=== PATIENT | male | born 1955 | race Two or more races ===

== ENCOUNTER → 2017-07-28 | Outpatient (REF) | payer MEDICAID ==
[~2017-07-28] MED LIST: ASPI1TAB PO; DICL500C PO; DORZ2SOL5 OD; Docusate Sod/Senna PO; FLAG500T PO; IBUP60TA PO; LANTINJ4 SC; LATA5OPD OD; LEVA1TAB2 PO; LISI10TA4 PO; METF500T13 PO; MULTLIQ PO; PERCOCET PO; PRIN10TA PO; VITA100072 PO
[2017-07-28 12:01] LABS: BASO # 0.1 10^3/uL (0.0-0.2); BASO % 1.1 % (0.0-1.0); EOS # 0.4 10^3/uL (0.0-0.50); EOS % 5.1 % (0.0-3.0); IMMATURE GRANULOCYTE % 0.4 % (0-0); LYMPH # 1.9 10^3/uL (1.5-4.5); LYMPH % 24.5 % (24.0-44.0); MEAN CORPUSCULAR HGB CONC 33.5 g/dl (32.0-36.5); MEAN CORPUSCULAR VOLUME 92.6 fl (80.0-96.0); MONO # 0.7 10^3/uL (0.0-0.8); MONO % 8.6 % (0.0-5.0); NEUTROPHILS # 4.6 10^3/uL (1.8-7.7); NEUTROPHILS % 60.3 % (36.0-66.0); PLATELET COUNT, AUTOMATED 294 10^3/uL (150-450); RED CELL DISTRIBUTION WIDTH 13.6 % (11.5-14.5); WHITE BLOOD COUNT 7.6 10^3/uL (4.0-10.0)
[2017-07-28 12:36] LABS: VITAMIN B12 LEVEL 395 PG/ML
[2017-07-28 12:38] LABS: FOLATE 15.2 NG/ML
[2017-07-28 12:54] LABS: ALBUMIN 3.8 GM/DL (3.2-5.2); ALBUMIN/GLOBULIN RATIO 1.19 (1.00-1.93); ALKALINE PHOSPHATASE 76 U/L (45-117); ALT/SGPT 21 U/L (12-78); ANION GAP 8 MEQ/L (8-16); AST/SGOT 8 U/L (7-37); BILIRUBIN,TOTAL 0.3 MG/DL (0.2-1.0); BLOOD UREA NITROGEN 24 MG/DL (7-18); CALCIUM LEVEL 9.1 MG/DL (8.8-10.2); CARBON DIOXIDE LEVEL 27 MEQ/L (21-32); CHLORIDE LEVEL 104 MEQ/L (98-107); CHOLESTEROL LEVEL 269 MG/DL (<200); CREATININE FOR GFR 1.07 MG/DL (0.70-1.30); FERRITIN 277 NG/ML (26-388); FREE T4 1.14 NG/DL (0.76-1.46); GLOMERULAR FILTRATION RATE > 60.0 (>49); GLUCOSE, FASTING 224 MG/DL (80-110); PERCENT SATURATION 25.6 % (19.7-50.0); POTASSIUM SERUM 4.9 MEQ/L (3.5-5.1); SODIUM LEVEL 139 MEQ/L (136-145); TOTAL IRON BINDING CAPACITY 313 UG/DL (250-450); TRIGLYCERIDES LEVEL 158 MG/DL (<150)
== END ==
LOC: M SFHCPLAZ 08:10
PROVIDERS: ATTEND Physician Assistant
DX: E78.5 Hyperlipidemia, unspecified (principal); R20.9 Unspecified disturbances of skin sensation; E11.9 Type 2 diabetes mellitus without complications; Z12.5 Encounter for screening for malignant neoplasm of prostate; F10.20 Alcohol dependence, uncomplicated
CPT/HCPCS: 36415; 80053; 80061; 82043; 82607; 82728; 82746; 83036; 83550; 84439; 84443; 85025; G0103

== ENCOUNTER → 2017-07-31 | Outpatient (CLI) | payer MEDICAID ==
[~2017-07-31] MED LIST changes: +PROHANCE 279.3MG/ML 15ML VIAL (A9576) As Ordered ONE; +PROHANCE 279.3MG/ML 5ML VIAL (A9576) As Ordered ONE
--- NOTE | 2017-07-31 14:28 | REP ---
MRI brain without and with IV gadolinium: History: Disturbance of skin sensation. Weakness and tingling left hand. - Facial numbness on the left side. Gadolinium enhancement dose: 22 ml of intravenous ProHance. No comparison brain imaging. Technique: Axial coronal and sagittal imaging planes are utilized. T1 and T2-weighted sequences include spin-echo, fast spin echo, FLAIR, and diffusion weighted sequences. MRI findings: No bony calvarial lesion is seen. Craniocervical junction and upper cervical cord is normal in appearance. There is no MR evidence of significant paranasal sinus disease. No intraorbital abnormality is seen. Diffusion weighted scans show no evidence to suggest acute ischemia. There is no evidence of infarct, mass, extra-axial fluid collection, hemorrhage or midline shift. Postcontrast study shows enhancement of normal vasculature. No abnormal gadolinium enhancement is appreciated. Impression: No acute intracranial lesion. Signed by Faustino Cornejo MD 07/31/2017 02:19 P
== END ==
LOC: M RAD 12:09
PROVIDERS: ATTEND Physician Assistant
DX: R20.9 Unspecified disturbances of skin sensation (principal)
CPT/HCPCS: 70553; A9576

== ENCOUNTER → 2017-09-15 | Outpatient (CLI) | payer MEDICAID ==
[~2017-09-15] MED LIST changes: -ASPI1TAB PO; -DICL500C PO; -DORZ2SOL5 OD; -Docusate Sod/Senna PO; -FLAG500T PO; -IBUP60TA PO; +ISOVUE-370 76% 100ML VIAL (Q9967) As Ordered; -LANTINJ4 SC; -LATA5OPD OD; -LEVA1TAB2 PO; -LISI10TA4 PO; -METF500T13 PO; -MULTLIQ PO; -PERCOCET PO; -PRIN10TA PO; -PROHANCE 279.3MG/ML 15ML VIAL (A9576) As Ordered ONE; -PROHANCE 279.3MG/ML 5ML VIAL (A9576) As Ordered ONE; -VITA100072 PO
== END ==
LOC: M RAD 13:11
DX: K11.8 Other diseases of salivary glands (principal)
CPT/HCPCS: Q9967

== ENCOUNTER → 2017-09-20 | Outpatient (REF) | payer OTHER | LOC: M LAB REF 16:08 | DX: D37.030 Neoplasm of uncertain behavior of the parotid salivary glands (principal) ==

== ENCOUNTER → 2017-11-02 | Outpatient (CLI) | payer OTHER | LOC: M RAD 07:12 | DX: I65.23 Occlusion and stenosis of bilateral carotid arteries (principal) | CPT/HCPCS: 93880 ==

== ENCOUNTER → 2017-12-27 | Outpatient (REF) | payer OTHER | LOC: M LAB REF 17:12 | DX: L03.032 Cellulitis of left toe (principal) ==

== ENCOUNTER → 2018-05-07 | Outpatient (REF) | payer OTHER, MEDICAID ==
[2018-05-07 17:44] LABS: C REACTIVE PROTEIN QUANTITATIV < 0.30 MG/DL (0.00-0.30); RHEUMATOID FACTOR QUANT < 10.0 IU/ML (<15.0)
[2018-05-07 17:48] LABS: BASO # 0.1 10^3/uL (0.0-0.2); BASO % 0.7 % (0.0-1.0); EOS # 0.3 10^3/uL (0.0-0.50); EOS % 3.6 % (0.0-3.0); HEMATOCRIT 38.9 % (42.0-52.0); HEMOGLOBIN 13.1 g/dl (13.5-17.5); IMMATURE GRANULOCYTE % 0.2 % (0-3.0); LYMPH # 2.1 10^3/uL (1.5-4.5); LYMPH % 25.6 % (24.0-44.0); MEAN CORPUSCULAR HEMOGLOBIN 31.4 pg (27.0-33.0); MEAN CORPUSCULAR HGB CONC 33.7 g/dl (32.0-36.5); MEAN CORPUSCULAR VOLUME 93.3 fl (80.0-96.0); MONO # 0.7 10^3/uL (0.0-0.8); MONO % 8.1 % (0.0-5.0); NEUTROPHILS # 5.1 10^3/uL (1.8-7.7); NEUTROPHILS % 61.8 % (36.0-66.0); PLATELET COUNT, AUTOMATED 266 10^3/uL (150-450); RED BLOOD COUNT 4.17 10^6/uL (4.30-6.10); RED CELL DISTRIBUTION WIDTH 13.9 % (11.5-14.5); WHITE BLOOD COUNT 8.3 10^3/uL (4.0-10.0)
[2018-05-07 17:54] LABS: ESTIMATED AVERAGE GLUCOSE 160 MG/DL (60-110); HEMOGLOBIN A1c 7.2 %
[2018-05-07 17:59] LABS: TOTAL 25(OH) VITAMIN D 50.1 NG/ML (30.0-100.0)
[2018-05-07 18:19] LABS: ALBUMIN 3.8 GM/DL (3.2-5.2); ALBUMIN/GLOBULIN RATIO 1.27 (1.00-1.93); ALKALINE PHOSPHATASE 67 U/L (45-117); ALT/SGPT 30 U/L (12-78); ANION GAP 8 MEQ/L (8-16); AST/SGOT 20 U/L (7-37); BILIRUBIN,TOTAL 0.5 MG/DL (0.2-1.0); BLOOD UREA NITROGEN 17 MG/DL (7-18); CALCIUM LEVEL 9.4 MG/DL (8.8-10.2); CARBON DIOXIDE LEVEL 29 MEQ/L (21-32); CHLORIDE LEVEL 105 MEQ/L (98-107); CHOLESTEROL LEVEL 209 MG/DL (<200); CREATININE FOR GFR 0.94 MG/DL (0.70-1.30); GLOMERULAR FILTRATION RATE > 60.0 (>49); GLUCOSE, FASTING 108 MG/DL (70-100); HDL CHOLESTEROL 54 MG/DL (>40); LDL CHOLESTEROL 125 MG/DL (<100); NON-HDL-C 155 MG/DL; POTASSIUM SERUM 4.3 MEQ/L (3.5-5.1); SODIUM LEVEL 142 MEQ/L (136-145); TOTAL PROTEIN 6.8 GM/DL (6.4-8.2); TRIGLYCERIDES LEVEL 152 MG/DL (<150)
[2018-05-07 18:59] LABS: ERYTHROCYTE SEDIMENTATION RATE 21 mm/hr (0-20)
[2018-05-10 00:07] LABS: CYCLIC CITRULLINATED PEPTIDE 6 units (0-19)
[2018-05-10 00:07] LABS: ANTINUCLEAR ANTIBODIES DIRECT Negative (Negative); Lyme Disease IgG/IgM Antibodie <0.91 ISR (0.00-0.90); Lyme Disease IgM Ab Quantitati <0.80 index (0.00-0.79)
== END ==
LOC: M SFHCCAPE 09:04
DX: E11.8 Type 2 diabetes mellitus with unspecified complications (principal); E78.2 Mixed hyperlipidemia

== ENCOUNTER → 2018-07-31 | Outpatient (CLI) | payer OTHER | LOC: M RAD 06:38 | DX: I65.23 Occlusion and stenosis of bilateral carotid arteries (principal) | CPT/HCPCS: 93880 ==

== ENCOUNTER → 2019-01-02 | Outpatient (REF) | payer MEDICAID, OTHER ==
[~2019-01-02] MED LIST changes: +ASPI81TA26 PO; +DICL500C PO; +DORZ2SOL5 OD; +Docusate Sod/Senna PO; +FLAG500T PO; +IBUP600T42 PO; -ISOVUE-370 76% 100ML VIAL (Q9967) As Ordered; +LANTINJ4 SC; +LATA0.0013 OD; +LEVA1TAB2 PO; +LISI10TA4 PO; +METF500T13 PO; +MULTLIQ PO; +PERCOCET PO; +PRIN10TA PO; +VITA100018 PO
[2019-01-02 16:41] LABS: BASO # 0.1 10^3/uL (0.0-0.2); BASO % 1.2 % (0.0-1.0); EOS # 0.3 10^3/uL (0.0-0.50); EOS % 4.1 % (0.0-3.0); LYMPH % 26.1 % (24.0-44.0); MEAN CORPUSCULAR HEMOGLOBIN 32.4 pg (27.0-33.0); MEAN CORPUSCULAR HGB CONC 33.3 g/dl (32.0-36.5); MEAN CORPUSCULAR VOLUME 97.2 fl (80.0-96.0); MONO # 0.7 10^3/uL (0.0-0.8); MONO % 9.2 % (0.0-5.0); NEUTROPHILS # 4.5 10^3/uL (1.8-7.7); NEUTROPHILS % 59.1 % (36.0-66.0); PLATELET COUNT, AUTOMATED 268 10^3/uL (150-450); RED BLOOD COUNT 4.32 10^6/uL (4.30-6.10); WHITE BLOOD COUNT 7.6 10^3/uL (4.0-10.0)
[2019-01-02 17:00] LABS: ALBUMIN 3.6 GM/DL (3.2-5.2); ALT/SGPT 23 U/L (12-78); BILIRUBIN,TOTAL 0.3 MG/DL (0.2-1.0); BLOOD UREA NITROGEN 34 MG/DL (7-18); CALCIUM LEVEL 8.9 MG/DL (8.8-10.2); CARBON DIOXIDE LEVEL 31 MEQ/L (21-32); CHLORIDE LEVEL 104 MEQ/L (98-107); CHOLESTEROL LEVEL 207 MG/DL (<200); CREATININE FOR GFR 1.21 MG/DL (0.70-1.30); GLOMERULAR FILTRATION RATE > 60.0 (>49); GLUCOSE, FASTING 184 MG/DL (70-100); HDL CHOLESTEROL 52 MG/DL (>40); LDL CHOLESTEROL 131 MG/DL (<100); NON-HDL-C 155 MG/DL; POTASSIUM SERUM 4.9 MEQ/L (3.5-5.1); SODIUM LEVEL 139 MEQ/L (136-145); TOTAL PROTEIN 6.9 GM/DL (6.4-8.2); TRIGLYCERIDES LEVEL 122 MG/DL (<150)
[2019-01-02 17:19] LABS: MAU/CREAT RATIO 88.4 MCG/MG (0.0-30.0)
[2019-01-02 17:32] LABS: HEMOGLOBIN A1c 8.2 %
== END ==
LOC: M SFHCCAPE 08:05
PROVIDERS: ATTEND Physician Assistant
DX: I10 Essential (primary) hypertension (principal); E11.8 Type 2 diabetes mellitus with unspecified complications; E78.2 Mixed hyperlipidemia

== ENCOUNTER → 2019-03-14 | Outpatient (CLI) | payer OTHER ==
--- NOTE | 2019-03-18 14:21 | REP ---
Clinical: Hypertension. Technique: Atkins scale and color Doppler evaluation of the kidneys and renal vasculature using curved array transducer. Findings: The kidneys are essentially normal in contour size and echogenicity and reniform shape without hydronephrosis, nephrolithiasis, cystic or renal mass lesion. Right kidney measures 12.2 x 5.8 x 5.4 cm . Left kidney measures 12.1 x 5.4 x 6.7 cm . Bladder is incompletely distended and grossly normal by current evaluation. Color Doppler evaluation of the renal vasculature demonstrates normal arterial wave patterns, velocities, renal aortic ratios, resistive indices and the acceleration time. No sonographic evidence for renal arterial stenosis noted. Renal vein is patent. Right Kidney: Peak arterial velocity: 115 cm/sec . Renal aortic ratio: 1.2 . Resistive indices: 0.75 - 0.77 . Acceleration times: 0.03 - 0.04 . Left kidney: Peak arterial velocity: 161 cm/sec . Renal aortic ratio: 1.7 . Resistive indices: 0.72 - 0.78 . Acceleration times: 0.02 - 0.03 . Impression: 1. Normal appearance of the bilateral kidneys. 2. No sonographic evidence to suggest renal arterial stenosis. Electronically Signed by Mervin Braden MD 03/18/2019 02:12 P
== END ==
LOC: M RAD 06:45
PROVIDERS: ATTEND Internal Medicine Cardiovascular Disease
DX: I10 Essential (primary) hypertension (principal)

== ENCOUNTER → 2019-03-27 | Outpatient (REF) | payer OTHER | LOC: M LAB REF 15:49 | PROVIDERS: ATTEND Podiatrist | DX: L97.522 Non-pressure chronic ulcer of other part of left foot with fat layer exposed (principal) ==

== ENCOUNTER 2019-05-07 11:41 | Day surgery (SDC) | payer OTHER ==
[~2019-05-07] VITALS: Ht 182.9 cm; Wt 113.4 kg
[~2019-05-07 11:41] MED LIST changes: +BASA100I SC; +BIMA01SOL OS; +BRIM1OPD OU; +CHOL100029 PO; +CLOP75TA2 PO; +FISH1000 PO; +LISI40TA PO; +MULTCAP PO; +NETA2.5D2 OD; +ODOR100T3 PO; +PILO1OPD OD; +VITA500T PO
[2019-05-07] MEDS ORDERED: CETACAINE SPRAY 5GM As Ordered ONE (15:10)
[2019-05-07] MEDS ORDERED: LIDOCAINE 2% INJ 100 MG/5 ML SDV (FOR ANES.) As Ordered ONE (15:18)
[2019-05-07] MEDS ORDERED: PROPOFOL 200 MG/20 ML VIAL As Ordered ONE (15:18)
[2019-05-07] MEDS ORDERED: LABETALOL HCL 100 MG/20 ML VIAL As Ordered ONE (15:58)
--- NOTE | 2019-05-07 16:16 | T-ECHO ---
DATE OF PROCEDURE: 05/07/2019 PREPROCEDURE DIAGNOSIS: Aortic valve vegetation (infective endocarditis). POSTPROCEDURE DIAGNOSIS: Aortic valve sclerosis. No vegetation. FINDINGS: Aortic valve sclerosis (moderate). No vegetation. PROCEDURE PERFORMED: Transesophageal echocardiogram. PROCEDURE PERFORMED BY: John Castrejon MD SLIP LASTER: None. SEDATION: IV sedation with propofol per MET[employer] PATTERN[employer]KER. Cetacaine spray to back of the pharynx. COMPLICATIONS: None. PROCEDURE DESCRIPTION: The patient received Cetacaine spray to the back of the pharynx. After receiving adequate IV sedation (Propofol), given by the METAL PATTERNMAKER esophageal intubation was accomplished by Dr. Castrejon using a Dina transesophageal echocardiogram probe. Rhythm appeared to sinus. This was a technically difficult transesophageal echocardiogram. The overall impression was that the left and right ventricle systolic function appeared to be globally normal. The aortic valve was moderately difficult to visualize but showed a three-cuspid aortic valve with moderate focal thickening and focal calcific deposits. No aortic regurgitation. The aortic valve did not appear to be significantly stenotic by visual assessment. No vegetations were seen on the aortic or mitral valves. Mitral valve was technically difficult as well in visualization but appeared to be unremarkable. Tricuspid and pulmonic valves were not adequately visualized. No pericardial effusion. CONCLUSIONS: 1. 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 No aortic regurgitation. Aortic valve did not appear to be stenotic by visual assessment. 2. No vegetation seen on the aortic or mitral valves. 3. Impression of normal left and right ventricle systolic function but technically difficult. 4. Technically difficult transesophageal echocardiogram.
[2019-05-07] MEDS ORDERED: ONDANSETRON 4MG/2ML VIAL (J2405) IV PRN (16:30)
[2019-05-07] MEDS ORDERED: LR 1,000 ML IV SCH (16:30)
[2019-05-07] MEDS ORDERED: PERCOCET 5MG/325MG TAB PO PRN (16:30)
[2019-05-07] MEDS ORDERED: fentaNYL 100 MCG/2 ML INJECTION (J3010) IV PRN (16:30)
[2019-05-07 20:06] VITALS: BP 167/79
== END 2019-05-07 20:15 | disposition home or self-care (01) ==
LOC: M SDC 11:41
PROVIDERS: ATTEND Internal Medicine Cardiovascular Disease
DX: I35.0 Nonrheumatic aortic (valve) stenosis (principal); I10 Essential (primary) hypertension; E11.9 Type 2 diabetes mellitus without complications; E78.5 Hyperlipidemia, unspecified; Z79.02 Long term (current) use of antithrombotics/antiplatelets; Z79.84 Long term (current) use of oral hypoglycemic drugs; Z79.4 Long term (current) use of insulin; L40.9 Psoriasis, unspecified

== ENCOUNTER → 2019-05-20 | Outpatient (CLI) | payer OTHER ==
--- NOTE | 2019-05-20 11:00 | REP ---
REASON: Low back pain. History of arthritis. There is mild whiskering involving both sacral and iliac side of each SI joint. The SI joints are non-fused. Small marginal osteophytes are seen arising from the inferior aspect of each SI joint. Although not performed as a hip exam, there are bilateral hip degenerative changes as well. These changes are mild to moderate. IMPRESSION: Chronic changes as described above. Electronically Signed by Remy Chandler DO 05/20/2019 02:37 P
--- NOTE | 2019-05-20 11:45 | REP ---
REASON FOR EXAM: Arthritis. COMPARISON EXAM: None. RIGHT HAND: There is an old healed fracture involving the 5th metacarpal. The joint spaces are symmetric and relatively well maintained. There is no evidence of acute fracture or destructive osseous lesion. Two tiny radiodensities are seen in the soft tissues just proximal to the proximal interphalangeal joint of the second digit and lateral to it. There is no evidence of periarticular osteopenia, marginal erosions, or marginal osteophytes. IMPRESSION: 1. Two tiny radiodensities in the soft tissues of the second digit consistent with foreign bodies, correlate clinically. 2. Other findings as described above. LEFT HAND, FOUR VIEWS: There is evidence of mild asymmetric interdigital joint space narrowing involving the PIP and DIP joints of the third digit. Seen in the base of the middle phalanx of the third digit there is a metallic radiodensity consistent with an anchor device from a previous operative procedure. There is periosteal thickening seen involving the volar aspect of the middle phalanx of the third digit and evidence of a small exostosis involving the base of the middle phalanx of the third digit dorsal aspect. These are likely secondary to chronic changes. There are no definite marginal erosions and there are no prominent marginal osteophytes. IMPRESSION: Chronic changes as described above. Electronically Signed by Remy Chandler DO 05/20/2019 02:37 P
== END ==
LOC: M RAD 06:13
PROVIDERS: ATTEND Internal Medicine Rheumatology
DX: M25.78 Osteophyte, vertebrae (principal)

== ENCOUNTER → 2019-07-22 | Outpatient (CLI) | payer OTHER ==
--- NOTE | 2019-07-22 07:33 | REP ---
Clinical: Atherosclerotic disease. Stenosis. Comparison: 07/31/2018 . Technique: Atkins scale and color Doppler evaluation using linear high frequency transducer Findings: Two-dimensional atkins scale and color images demonstrate mixed atheromatous plaquing of the carotid bulbs and proximal internal/external carotid arteries bilaterally with elements of spectral broadening to the right internal carotid artery and left internal carotid artery. Normal flow direction is appreciated in the bilateral vertebral arteries. RIGHT (cm/s) LEFT (cm/s) ICA peak systolic velocity 186.4 132.3 ICA diastolic velocity 68.7 44.4 ECA peak systolic velocity 116.2 116.2 CCA peak systolic velocity 97.8 93.7 ICA/CCA ratio 1.91 1.41 Impression: No significant change from prior examination. Based on set standards narrowing falls within the 50-69% range. Electronically Signed by Mervin Braden MD 07/22/2019 07:24 A
== END ==
LOC: M RAD 06:09
PROVIDERS: ATTEND Physician Assistant
DX: I65.23 Occlusion and stenosis of bilateral carotid arteries (principal)

== ENCOUNTER → 2020-10-29 | Outpatient (REF) | payer MEDICARE ==
[~2020-10-29] MED LIST changes: +LISI10TA22 PO; -LISI10TA4 PO; -LISI40TA PO; +LISI40TA4 PO; +VITA-243 PO; -VITA500T PO
[2020-10-29 11:20] LABS: BASO # 0.1 10^3/uL (0.0-0.2); BASO % 1.3 % (0.0-1.0); EOS # 0.4 10^3/uL (0.0-0.5); EOS % 4.7 % (0.0-3.0); HEMATOCRIT 38.6 % (42.0-52.0); HEMOGLOBIN 12.8 g/dl (13.5-17.5); LYMPH # 2.3 10^3/uL (1.5-5.0); LYMPH % 26.1 % (24.0-44.0); MEAN CORPUSCULAR HEMOGLOBIN 32.4 pg (27.0-33.0); MEAN CORPUSCULAR HGB CONC 33.2 g/dl (32.0-36.5); MEAN CORPUSCULAR VOLUME 97.7 fl (80.0-96.0); MONO # 0.8 10^3/uL (0.0-0.8); MONO % 8.6 % (2.0-8.0); NEUTROPHILS # 5.3 10^3/uL (1.5-8.5); PLATELET COUNT, AUTOMATED 279 10^3/uL (150-450); RED BLOOD COUNT 3.95 10^6/uL (4.30-6.10)
[2020-10-29 12:00] LABS: ALBUMIN 3.8 GM/DL (3.2-5.2); ALT/SGPT 21 U/L (12-78); BILIRUBIN,TOTAL 0.4 MG/DL (0.2-1.0); BLOOD UREA NITROGEN 31 MG/DL (7-18); CALCIUM LEVEL 9.2 MG/DL (8.8-10.2); CARBON DIOXIDE LEVEL 26 MEQ/L (21-32); CHLORIDE LEVEL 107 MEQ/L (98-107); CHOLESTEROL LEVEL 202 MG/DL (<200); CHOLESTEROL RISK RATIO 2.805 (<5); GLOMERULAR FILTRATION RATE 59.2 (>49); GLUCOSE, FASTING 128 MG/DL (70-100); HDL CHOLESTEROL 72 MG/DL (>40); LDL CHOLESTEROL 107 MG/DL (<100); NON-HDL-C 130 MG/DL; POTASSIUM SERUM 4.6 MEQ/L (3.5-5.1); SODIUM LEVEL 139 MEQ/L (136-145); TOTAL PROTEIN 6.6 GM/DL (6.4-8.2); TRIGLYCERIDES LEVEL 116 MG/DL (<150)
[2020-10-29 12:06] LABS: MALB URINE SIEMENS 58.6 MG/L
[2020-10-29 12:31] LABS: TOTAL 25(OH) VITAMIN D 57.7 NG/ML (30.0-100.0)
[2020-10-29 13:57] LABS: FERRITIN 264 NG/ML (26-388); IRON (FE) 101 UG/DL (65-175); PERCENT SATURATION 32.4 % (19.7-50.0); TOTAL IRON BINDING CAPACITY 312 UG/DL (250-450)
[2020-10-29 14:03] LABS: VITAMIN B12 LEVEL 765 PG/ML
[2020-10-29 14:04] LABS: FOLATE > 24.0 NG/ML
== END ==
LOC: M SFHCCLAY 08:06
PROVIDERS: ATTEND Physician Assistant
DX: D64.9 Anemia, unspecified (principal); I10 Essential (primary) hypertension; E11.8 Type 2 diabetes mellitus with unspecified complications; Z79.4 Long term (current) use of insulin; Z12.5 Encounter for screening for malignant neoplasm of prostate
CPT/HCPCS: 80053; 80061; 82043; 82306; 82607; 82728; 82746; 83036; 83550; 84443; 85025; G0103

== ENCOUNTER 2020-11-25 22:00 | Emergency (ER) | payer MEDICARE ==
[2020-11-25 23:24] LABS: BASO # 0.1 10^3/uL (0.0-0.2); BASO % 0.9 % (0.0-1.0); EOS # 0.3 10^3/uL (0.0-0.5); EOS % 3.3 % (0.0-3.0); HEMATOCRIT 40.1 % (42.0-52.0); HEMOGLOBIN 13.4 g/dl (13.5-17.5); LYMPH # 1.4 10^3/uL (1.5-5.0); LYMPH % 17.7 % (24.0-44.0); MEAN CORPUSCULAR HEMOGLOBIN 33.1 pg (27.0-33.0); MEAN CORPUSCULAR HGB CONC 33.4 g/dl (32.0-36.5); MONO # 0.5 10^3/uL (0.0-0.8); MONO % 5.9 % (2.0-8.0); NEUTROPHILS # 5.7 10^3/uL (1.5-8.5); NEUTROPHILS % 71.9 % (36.0-66.0); PLATELET COUNT, AUTOMATED 276 10^3/uL (150-450); RED BLOOD COUNT 4.05 10^6/uL (4.30-6.10)
[2020-11-25 23:51] LABS: BLOOD UREA NITROGEN 15 MG/DL (7-18); CALCIUM LEVEL 8.8 MG/DL (8.8-10.2); CARBON DIOXIDE LEVEL 25 MEQ/L (21-32); CHLORIDE LEVEL 106 MEQ/L (98-107); CREATININE FOR GFR 1.19 MG/DL (0.70-1.30); ETHYL ALCOHOL (ETHANOL) 0.231 % (0.000-0.010); GLOMERULAR FILTRATION RATE > 60.0 (>49); GLUCOSE, FASTING 130 MG/DL (70-100); POTASSIUM SERUM 4.4 MEQ/L (3.5-5.1); SODIUM LEVEL 139 MEQ/L (136-145)
[2020-11-26 01:53] VITALS: BP 158/92
== END 2020-11-26 01:55 | disposition home or self-care (01) ==
LOC: M ED 22:00
DX: F10.120 Alcohol abuse with intoxication, uncomplicated (principal); I11.9 Hypertensive heart disease without heart failure; E11.9 Type 2 diabetes mellitus without complications; E78.5 Hyperlipidemia, unspecified; F17.200 Nicotine dependence, unspecified, uncomplicated; Z79.4 Long term (current) use of insulin; Z79.82 Long term (current) use of aspirin; Z79.899 Other long term (current) drug therapy

== ENCOUNTER → 2021-03-16 | Outpatient (REF) | payer MEDICARE, MEDICAID | LOC: M LAB REF 18:40 | PROVIDERS: ATTEND Podiatrist | DX: L03.129 Acute lymphangitis of unspecified part of limb (principal); M79.671 Pain in right foot ==

== ENCOUNTER → 2021-08-24 | Outpatient (REF) | payer MEDICARE, MEDICAID ==
[2021-08-24 16:13] LABS: BASO # 0.1 10^3/uL (0.0-0.2); EOS # 0.4 10^3/uL (0.0-0.5); EOS % 4.4 % (0.0-3.0); HEMATOCRIT 38.3 % (42.0-52.0); HEMOGLOBIN 12.4 g/dl (13.5-17.5); LYMPH # 1.6 10^3/uL (1.5-5.0); LYMPH % 18.9 % (24.0-44.0); MEAN CORPUSCULAR HEMOGLOBIN 31.7 pg (27.0-33.0); MEAN CORPUSCULAR HGB CONC 32.4 g/dl (32.0-36.5); MONO # 0.7 10^3/uL (0.0-0.8); MONO % 7.5 % (2.0-8.0); NEUTROPHILS # 5.9 10^3/uL (1.5-8.5); PLATELET COUNT, AUTOMATED 289 10^3/uL (150-450); RED BLOOD COUNT 3.91 10^6/uL (4.30-6.10); WHITE BLOOD COUNT 8.7 10^3/uL (4.0-10.0)
[2021-08-24 16:46] LABS: ALBUMIN 3.6 GM/DL (3.2-5.2); ALT/SGPT 28 U/L (12-78); BILIRUBIN,TOTAL 0.3 MG/DL (0.2-1.0); BLOOD UREA NITROGEN 22 MG/DL (7-18); CALCIUM LEVEL 9.6 MG/DL (8.8-10.2); CARBON DIOXIDE LEVEL 28 MEQ/L (21-32); CHLORIDE LEVEL 109 MEQ/L (98-107); CHOLESTEROL LEVEL 191 MG/DL (<200); CHOLESTEROL RISK RATIO 3.237 (<5); CREATININE FOR GFR 1.06 MG/DL (0.70-1.30); GLOMERULAR FILTRATION RATE > 60.0 (>49); GLUCOSE, FASTING 143 MG/DL (70-100); HDL CHOLESTEROL 59 MG/DL (>40); LDL CHOLESTEROL 115 MG/DL (<100); NON-HDL-C 132 MG/DL; POTASSIUM SERUM 5.1 MEQ/L (3.5-5.1); SODIUM LEVEL 142 MEQ/L (136-145); TOTAL PROTEIN 6.7 GM/DL (6.4-8.2); TRIGLYCERIDES LEVEL 86 MG/DL (<150)
[2021-08-24 16:53] LABS: CREATININE, URINE 83.7 MG/DL; MAU/CREAT RATIO 126.6 MCG/MG (0.0-30.0)
[2021-08-24 17:24] LABS: TOTAL 25(OH) VITAMIN D 60.7 NG/ML (30.0-100.0)
[2021-08-24 17:59] LABS: HEMOGLOBIN A1c 7.2 %
== END ==
LOC: M SFHCCAPE 08:29
PROVIDERS: ATTEND Physician Assistant
DX: E78.2 Mixed hyperlipidemia (principal); I10 Essential (primary) hypertension; E11.8 Type 2 diabetes mellitus with unspecified complications; Z79.899 Other long term (current) drug therapy

== ENCOUNTER → 2022-06-20 | Outpatient (REF) | payer MEDICARE, MEDICAID ==
[2022-06-20 18:28] LABS: BASO # 0.1 10^3/uL (0.0-0.2); BASO % 1.1 % (0.0-1.0); EOS # 0.3 10^3/uL (0.0-0.5); EOS % 4.1 % (0.0-3.0); HEMATOCRIT 40.1 % (42.0-52.0); HEMOGLOBIN 13.4 g/dl (13.5-17.5); LYMPH # 1.8 10^3/uL (1.5-5.0); MEAN CORPUSCULAR HEMOGLOBIN 32.4 pg (27.0-33.0); MEAN CORPUSCULAR HGB CONC 33.4 g/dl (32.0-36.5); MEAN CORPUSCULAR VOLUME 96.9 fl (80.0-96.0); MONO # 0.6 10^3/uL (0.0-0.8); MONO % 6.7 % (2.0-8.0); NEUTROPHILS # 5.5 10^3/uL (1.5-8.5); NEUTROPHILS % 65.9 % (36.0-66.0); PLATELET COUNT, AUTOMATED 340 10^3/uL (150-450); RED BLOOD COUNT 4.14 10^6/uL (4.30-6.10); WHITE BLOOD COUNT 8.4 10^3/uL (4.0-10.0)
[2022-06-20 19:07] LABS: HEMOGLOBIN A1c 7.1 %
[2022-06-20 19:08] LABS: ALBUMIN 3.7 GM/DL (3.2-5.2); ALT/SGPT 26 U/L (12-78); BILIRUBIN,TOTAL 0.4 MG/DL (0.2-1.0); BLOOD UREA NITROGEN 23 MG/DL (7-18); CALCIUM LEVEL 9.7 MG/DL (8.8-10.2); CARBON DIOXIDE LEVEL 27 MEQ/L (21-32); CHLORIDE LEVEL 105 MEQ/L (98-107); CHOLESTEROL LEVEL 222 MG/DL (<200); CHOLESTEROL RISK RATIO 3.313 (<5); CREATININE FOR GFR 1.14 MG/DL (0.70-1.30); GLOMERULAR FILTRATION RATE > 60.0 (>49); GLUCOSE, FASTING 139 MG/DL (70-100); HDL CHOLESTEROL 67 MG/DL (>40); LDL CHOLESTEROL 129 MG/DL (<100); NON-HDL-C 155 MG/DL; POTASSIUM SERUM 4.6 MEQ/L (3.5-5.1); SODIUM LEVEL 139 MEQ/L (136-145); TOTAL PROTEIN 6.8 GM/DL (6.4-8.2); TRIGLYCERIDES LEVEL 131 MG/DL (<150)
[2022-06-20 20:10] LABS: FOLATE > 24.0 NG/ML; TOTAL 25(OH) VITAMIN D 100.6 NG/ML (30.0-100.0); VITAMIN B12 LEVEL 417 PG/ML
== END ==
LOC: M SFHCCAPE 08:52
PROVIDERS: ATTEND Physician Assistant
DX: I10 Essential (primary) hypertension (principal); E11.8 Type 2 diabetes mellitus with unspecified complications; Z79.899 Other long term (current) drug therapy
CPT/HCPCS: 80053; 80061; 82306; 82607; 82746; 83036; 83090; 83921; 84443; 85025; G0103

== ENCOUNTER 2022-09-25 05:50 | Emergency (ER) | payer MEDICAID, MEDICARE, OTHER ==
[~2022-09-25] VITALS: Ht 180.3 cm; Wt 109.1 kg
[2022-09-25] MEDS ORDERED: ACETAMINOPHEN 500 MG TAB PO ONE (09:55)
[2022-09-25] MEDS ORDERED: OXYCODONE/APAP 5MG/325MG(HOME DOSE PACK) PO ONE (10:30)
[2022-09-25 10:38] VITALS: BP 152/66
== END 2022-09-25 10:52 | disposition home or self-care (01) ==
LOC: M ED 05:50
DX: M94.0 Chondrocostal junction syndrome [Tietze] (principal); M25.512 Pain in left shoulder; W01.0XXA Fall on same level from slipping, tripping and stumbling without subsequent striking against object, initial encounter; E11.9 Type 2 diabetes mellitus without complications; I10 Essential (primary) hypertension; F10.10 Alcohol abuse, uncomplicated; H40.9 Unspecified glaucoma; Z79.84 Long term (current) use of oral hypoglycemic drugs; Z79.4 Long term (current) use of insulin; Z79.82 Long term (current) use of aspirin; Z79.811 Long term (current) use of aromatase inhibitors; Z79.899 Other long term (current) drug therapy

== ENCOUNTER → 2023-03-07 | Outpatient (REF) | payer MEDICARE, MEDICAID ==
[2023-03-07 18:41] LABS: BASO # 0.1 10^3/uL (0.0-0.2); BASO % 0.7 % (0.0-1.0); EOS # 0.3 10^3/uL (0.0-0.5); EOS % 3.3 % (0.0-3.0); HEMATOCRIT 37.9 % (42.0-52.0); HEMOGLOBIN 12.6 g/dl (13.5-17.5); LYMPH # 2.2 10^3/uL (1.5-5.0); LYMPH % 26.8 % (24.0-44.0); MEAN CORPUSCULAR HEMOGLOBIN 32.1 pg (27.0-33.0); MEAN CORPUSCULAR HGB CONC 33.2 g/dl (32.0-36.5); MEAN CORPUSCULAR VOLUME 96.7 fl (80.0-96.0); MONO # 0.8 10^3/uL (0.0-0.8); MONO % 9.6 % (2.0-8.0); NEUTROPHILS # 4.9 10^3/uL (1.5-8.5); NEUTROPHILS % 59.2 % (36.0-66.0); PLATELET COUNT, AUTOMATED 262 10^3/uL (150-450); RED BLOOD COUNT 3.92 10^6/uL (4.30-6.10); WHITE BLOOD COUNT 8.2 10^3/uL (4.0-10.0)
[2023-03-07 19:14] LABS: ALBUMIN 3.7 G/DL (3.2-5.2); BILIRUBIN,TOTAL 0.5 MG/DL (0.3-1.2); CALCIUM LEVEL 9.4 MG/DL (8.3-10.6); CHOLESTEROL RISK RATIO 2.81 (<5); CREATININE FOR GFR 1.36 MG/DL (0.70-1.30); GLOMERULAR FILTRATION RATE 55.8 (>49); HDL CHOLESTEROL 71.8 MG/DL (>40); LDL CHOLESTEROL 113.8 MG/DL (<100); NON-HDL-C 130.2 MG/DL; POTASSIUM SERUM 4.5 MMOL/L (3.5-5.1); THYROID STIMULATING HORMONE 1.816 uIU/ML (0.55-4.78); TOTAL 25(OH) VITAMIN D 73.1 NG/ML (20.0-100.0); TOTAL PROTEIN 6.4 G/DL (5.7-8.2)
[2023-03-07 20:16] LABS: HEMOGLOBIN A1c 6.9 % (4.0-6.0)
== END ==
LOC: M SFHCCAPE 09:38
PROVIDERS: ATTEND Physician Assistant
DX: R07.81 Pleurodynia (principal); F10.20 Alcohol dependence, uncomplicated; E78.2 Mixed hyperlipidemia; I10 Essential (primary) hypertension; E11.8 Type 2 diabetes mellitus with unspecified complications; Z79.899 Other long term (current) drug therapy

== ENCOUNTER 2023-03-24 14:12 | Inpatient (IN) | payer MEDICARE, MEDICAID ==
[~2023-03-24] VITALS: Ht 180.3 cm; Wt 107.7 kg
[~2023-03-24 14:12] MED LIST changes: -BIMA01SOL OS; +BIMA01SOL OU; +BRIM1OPD OS; -BRIM1OPD OU
[2023-03-24] MEDS ORDERED: RA B1TAB7 PO (14:39)
[2023-03-24 15:57] LABS: BASO # 0.1 10^3/uL (0.0-0.2); EOS # 0.2 10^3/uL (0.0-0.5); EOS % 1.7 % (0.0-3.0); HEMATOCRIT 36.4 % (42.0-52.0); HEMOGLOBIN 12.6 g/dl (13.5-17.5); LYMPH # 1.2 10^3/uL (1.5-5.0); LYMPH % 13.7 % (24.0-44.0); MEAN CORPUSCULAR HEMOGLOBIN 32.2 pg (27.0-33.0); MEAN CORPUSCULAR HGB CONC 34.6 g/dl (32.0-36.5); MEAN CORPUSCULAR VOLUME 93.1 fl (80.0-96.0); MONO # 0.6 10^3/uL (0.0-0.8); MONO % 6.8 % (2.0-8.0); NEUTROPHILS # 6.8 10^3/uL (1.5-8.5); NEUTROPHILS % 76.2 % (36.0-66.0); PLATELET COUNT, AUTOMATED 410 10^3/uL (150-450); RED BLOOD COUNT 3.91 10^6/uL (4.30-6.10)
[2023-03-24 16:16] LABS: ERYTHROCYTE SEDIMENTATION RATE 22 mm/hr (0-20)
[2023-03-24] MEDS ORDERED: VANCOMYCIN HCL 2,000 MG in D5W 500 ML IV ONE (16:20)
[2023-03-24 16:24] LABS: CALCIUM LEVEL 9.1 MG/DL (8.3-10.6); CREATININE FOR GFR 1.48 MG/DL (0.70-1.30); GLOMERULAR FILTRATION RATE 50.6 (>49); POTASSIUM SERUM 4.7 MMOL/L (3.5-5.1)
[2023-03-24] MEDS ORDERED: LABETALOL 100MG/20ML VIAL IV STA ×2 (16:26→18:43)
[2023-03-24] MEDS ORDERED: VANCOMYCIN HCL 1,000 MG, VIAL MATE ADAPTER 1 EACH in D5W 250 ML IV ONE ×2 (16:30→17:30)
[2023-03-24] MEDS ORDERED: lisinopriL 40MG TAB PO ONE (17:10)
[2023-03-24 17:41] LABS: RSV AMPLIFICATION NEGATIVE (NEGATIVE)
[2023-03-24 17:42] LABS: CK-MB VALUE MASS 1.4 NG/ML (<3.6)
[2023-03-24 17:43] LABS: CPK CREATINE PHOSPHOKINASE 132 U/L (46-171); MB/CK RELATIVE INDEX 1.06 (< OR =4)
[2023-03-24] MEDS ORDERED: NS 1,000 ML IV ONE (17:50)
[2023-03-24 18:42] LABS: HEMOGLOBIN A1c 7.4 % (4.0-6.0)
[2023-03-24 19:18] LABS: C REACTIVE PROTEIN QUANTITATIV < 0.40 MG/DL (<1.0)
[2023-03-24 19:38] LABS: CK-MB VALUE MASS < 1.0 NG/ML (<3.6)
[2023-03-24 19:40] LABS: CPK CREATINE PHOSPHOKINASE 121 U/L (46-171); MB/CK RELATIVE INDEX 0.82 (< OR =4)
[2023-03-24] MEDS ORDERED: CARVedilol 12.5 MG TAB PO ONE (20:10)
[2023-03-24] MEDS ORDERED: FUROSEMIDE 20MG/2ML VIAL IV ONE (20:10)
[2023-03-24] MEDS ORDERED: LISI20TA33 PO (20:48)
[2023-03-24] MEDS ORDERED: MULTTAB79 PO (20:48)
[2023-03-24] MEDS ORDERED: VITA100066 PO (20:50)
[2023-03-24] MEDS ORDERED: OMEG100011 PO (20:51)
[2023-03-24] MEDS ORDERED: tumeric PO (20:53)
[2023-03-24] MEDS ORDERED: TURM500C5 PO (20:53)
[2023-03-24] MEDS ORDERED: HOME MED LIST COMPLETE! XX SCH (20:55)
[2023-03-24] MEDS: HEPARIN SOD (PORCINE) 5000UNITS/ML 1ML VIAL/SYRINGE SC SCH (22:00)
[2023-03-24] MEDS ORDERED: cloNIDine 0.1MG TABLET PO ONE ×2 (22:25→23:40)
[2023-03-24] MEDS ORDERED: ALBUTEROL SULFATE 2.5MG/0.5ML INH NEB SOLN NEB PRN (22:25)
[2023-03-24] MEDS ORDERED: ACETAMINOPHEN TAB 650MG DOSE (2X325MG) PO PRN (22:25)
[2023-03-24] MEDS ORDERED: GLUCOSE 4GM CHEW TABLET PO PRN (22:25)
[2023-03-24] MEDS ORDERED: DEXTROSE 50% 50ML SYRINGE IV PRN (22:25)
[2023-03-24] MEDS ORDERED: NS 1,000 ML IV SCH (22:25)
[2023-03-24] MEDS ORDERED: HYDROMORPHONE HCL 0.5 MG/ 0.5 ML SYRINGE IV PRN ×2 (22:25)
[2023-03-24] MEDS ORDERED: GLUCAGON INJ 1MG VIAL SC PRN (22:25)
[2023-03-24] MEDS: INSULIN LISPRO (NovoLOG) PER UNIT SC SCH (22:48)
[2023-03-24] MEDS ORDERED: LEVEMIR (INSULIN DETEMIR) 1 UNITS/0.01ML SC SCH (23:50)
[2023-03-25 01:37] VITALS: BP 134/71; TEMP 97.2; O2SAT 98
[2023-03-25] MEDS: VANCOMYCIN HCL 750 MG, VIAL MATE ADAPTER 1 EACH in D5W 250 ML IV SCH ×2 (05:07→18:09)
[2023-03-25 05:10] VITALS: BP 172/90; TEMP 97.5; O2SAT 96
[2023-03-25] MEDS: VANCOMYCIN HCL 500 MG in D5W MINI-BAG PLUS 100 ML IV SCH ×2 (06:40→19:25)
[2023-03-25 06:50] LABS: BLOOD UREA NITROGEN 28 MG/DL (9-23); CALCIUM LEVEL 8.9 MG/DL (8.3-10.6); CARBON DIOXIDE LEVEL 27 MMOL/L (20-31); CHLORIDE LEVEL 106 MMOL/L (98-107); CREATININE FOR GFR 1.04 MG/DL (0.70-1.30); GLOMERULAR FILTRATION RATE > 60.0 (>49); GLUCOSE, FASTING 207 MG/DL (74-106); POTASSIUM SERUM 3.9 MMOL/L (3.5-5.1); SODIUM LEVEL 141 MMOL/L (136-145)
[2023-03-25] MEDS: INSULIN LISPRO (NovoLOG) PER UNIT SC SCH ×4 (07:34→20:28)
[2023-03-25] MEDS ORDERED: cloNIDine 0.1MG TABLET PO SCH (09:00)
[2023-03-25] MEDS: VITAMIN D 1,000 INTERNATIONAL UNITS TABLET PO SCH (12:44)
[2023-03-25] MEDS: OMEGA-3 1000MG CAPSULE PO SCH ×2 (12:44→21:44)
[2023-03-25] MEDS: ASPIRIN 81MG ENTERIC TABLET PO SCH (12:45)
[2023-03-25] MEDS: ASCORBIC ACID 500 MG TAB PO SCH ×2 (12:45→21:43)
[2023-03-25] MEDS: HEPARIN SOD (PORCINE) 5000UNITS/ML 1ML VIAL/SYRINGE SC SCH ×2 (13:46→21:52)
[2023-03-25 15:00] VITALS: BP 168/90; TEMP 97.5; O2SAT 95
[2023-03-25] MEDS ORDERED: **hydrALAZINE HCL** 25 MG TAB PO PRN (15:45)
[2023-03-25] MEDS: ATORVASTATIN 20 MG TAB PO SCH (18:09)
[2023-03-25 20:45] VITALS: BP 172/78; TEMP 97.9; O2SAT 96
[2023-03-25] MEDS: LATANOPROST 0.005% OPHTH SOLN 2.5 ML OU SCH (21:00)
[2023-03-25] MEDS ORDERED: lisinopriL 40MG TAB PO SCH (21:00)
[2023-03-25] MEDS: CLOPIDOGREL 75 MG TAB PO SCH (21:44)
[2023-03-25] MEDS: lisinopriL 40MG TAB PO SCH (21:46)
[2023-03-25] MEDS: LEVEMIR (INSULIN DETEMIR) 1 UNITS/0.01ML SC SCH (21:47)
[2023-03-25] MEDS: BRIMONIDINE 0.1% OPHTH SOLN 5ML OS SCH (21:47)
[2023-03-26 04:42] LABS: BASO # 0.1 10^3/uL (0.0-0.2); BASO % 1.4 % (0.0-1.0); EOS # 0.3 10^3/uL (0.0-0.5); EOS % 3.7 % (0.0-3.0); HEMATOCRIT 34.6 % (42.0-52.0); HEMOGLOBIN 11.8 g/dl (13.5-17.5); LYMPH % 23.5 % (24.0-44.0); MEAN CORPUSCULAR HEMOGLOBIN 32.4 pg (27.0-33.0); MEAN CORPUSCULAR HGB CONC 34.1 g/dl (32.0-36.5); MEAN CORPUSCULAR VOLUME 95.1 fl (80.0-96.0); MONO # 0.7 10^3/uL (0.0-0.8); MONO % 7.8 % (2.0-8.0); NEUTROPHILS # 5.4 10^3/uL (1.5-8.5); NEUTROPHILS % 63.2 % (36.0-66.0); PLATELET COUNT, AUTOMATED 331 10^3/uL (150-450); RED BLOOD COUNT 3.64 10^6/uL (4.30-6.10); WHITE BLOOD COUNT 8.5 10^3/uL (4.0-10.0)
[2023-03-26] MEDS: VANCOMYCIN HCL 750 MG, VIAL MATE ADAPTER 1 EACH in D5W 250 ML IV SCH ×2 (04:43→17:15)
[2023-03-26] MEDS: HEPARIN SOD (PORCINE) 5000UNITS/ML 1ML VIAL/SYRINGE SC SCH ×3 (05:02→21:16)
[2023-03-26 05:04] LABS: BLOOD UREA NITROGEN 21 MG/DL (9-23); CARBON DIOXIDE LEVEL 30 MMOL/L (20-31); CHLORIDE LEVEL 108 MMOL/L (98-107); CREATININE FOR GFR 1.02 MG/DL (0.70-1.30); GLOMERULAR FILTRATION RATE > 60.0 (>49); GLUCOSE, FASTING 77 MG/DL (74-106); POTASSIUM SERUM 4.4 MMOL/L (3.5-5.1); SODIUM LEVEL 142 MMOL/L (136-145)
[2023-03-26] MEDS: VANCOMYCIN HCL 500 MG in D5W MINI-BAG PLUS 100 ML IV SCH ×2 (05:58→18:46)
[2023-03-26 06:15] VITALS: BP 204/94; TEMP 97.5; O2SAT 96
[2023-03-26 06:45] VITALS: BP 172/102
[2023-03-26] MEDS: INSULIN LISPRO (NovoLOG) PER UNIT SC SCH ×4 (07:30→21:00)
[2023-03-26 08:00] VITALS: BP 144/70
[2023-03-26] MEDS: ASPIRIN 81MG ENTERIC TABLET PO SCH (09:30)
[2023-03-26] MEDS: BRIMONIDINE 0.1% OPHTH SOLN 5ML OS SCH ×2 (09:30→20:21)
[2023-03-26] MEDS: ASCORBIC ACID 500 MG TAB PO SCH ×2 (09:31→20:16)
[2023-03-26 09:32] VITALS: BP 144/70
[2023-03-26] MEDS: OMEGA-3 1000MG CAPSULE PO SCH ×2 (09:32→20:16)
[2023-03-26] MEDS: VITAMIN D 1,000 INTERNATIONAL UNITS TABLET PO SCH (09:32)
[2023-03-26] MEDS: ATORVASTATIN 20 MG TAB PO SCH (09:32)
[2023-03-26 14:00] VITALS: BP 156/66; TEMP 97.7; O2SAT 94
[2023-03-26] MEDS: LACTOBACILLUS ACIDOPHILUS CAP (BACID) PO SCH (17:15)
[2023-03-26 20:00] VITALS: BP 175/78; TEMP 98.1; O2SAT 97
[2023-03-26] MEDS: lisinopriL 40MG TAB PO SCH (20:16)
[2023-03-26] MEDS: CLOPIDOGREL 75 MG TAB PO SCH (20:16)
[2023-03-26] MEDS: LATANOPROST 0.005% OPHTH SOLN 2.5 ML OU SCH (20:22)
[2023-03-26] MEDS: LEVEMIR (INSULIN DETEMIR) 1 UNITS/0.01ML SC SCH (21:16)
[2023-03-27 04:34] LABS: BASO # 0.1 10^3/uL (0.0-0.2); BASO % 1.2 % (0.0-1.0); EOS # 0.2 10^3/uL (0.0-0.5); EOS % 3.2 % (0.0-3.0); HEMATOCRIT 33.9 % (42.0-52.0); HEMOGLOBIN 11.1 g/dl (13.5-17.5); LYMPH # 1.7 10^3/uL (1.5-5.0); LYMPH % 23.3 % (24.0-44.0); MEAN CORPUSCULAR HEMOGLOBIN 31.4 pg (27.0-33.0); MEAN CORPUSCULAR HGB CONC 32.7 g/dl (32.0-36.5); MONO # 0.5 10^3/uL (0.0-0.8); MONO % 6.8 % (2.0-8.0); NEUTROPHILS # 4.9 10^3/uL (1.5-8.5); NEUTROPHILS % 65.2 % (36.0-66.0); PLATELET COUNT, AUTOMATED 301 10^3/uL (150-450); RED BLOOD COUNT 3.53 10^6/uL (4.30-6.10); WHITE BLOOD COUNT 7.5 10^3/uL (4.0-10.0)
[2023-03-27 04:53] LABS: BLOOD UREA NITROGEN 19 MG/DL (9-23); CALCIUM LEVEL 8.9 MG/DL (8.3-10.6); CARBON DIOXIDE LEVEL 28 MMOL/L (20-31); CHLORIDE LEVEL 108 MMOL/L (98-107); CREATININE FOR GFR 1.01 MG/DL (0.70-1.30); GLOMERULAR FILTRATION RATE > 60.0 (>49); GLUCOSE, FASTING 137 MG/DL (74-106); POTASSIUM SERUM 3.9 MMOL/L (3.5-5.1); SODIUM LEVEL 143 MMOL/L (136-145); VANCOMYCIN LEVEL TROUGH 17.4 UG/ML (10.0-20.0)
[2023-03-27] MEDS: HEPARIN SOD (PORCINE) 5000UNITS/ML 1ML VIAL/SYRINGE SC SCH ×2 (05:08→14:00)
[2023-03-27] MEDS: VANCOMYCIN HCL 750 MG, VIAL MATE ADAPTER 1 EACH in D5W 250 ML IV SCH (05:08)
[2023-03-27 05:10] VITALS: BP 160/98; TEMP 97.9; O2SAT 97
[2023-03-27] MEDS: VANCOMYCIN HCL 500 MG in D5W MINI-BAG PLUS 100 ML IV SCH (05:18)
[2023-03-27] MEDS: DOXYCYCLINE HYCLATE 100MG TABLET PO SCH ×2 (09:00→17:05)
[2023-03-27] MEDS ORDERED: METOPROLOL SUCC *XL* 25MG TAB (TopROL *XL*) PO SCH (09:00)
[2023-03-27 09:09] VITALS: BP 155/92
[2023-03-27] MEDS: ASPIRIN 81MG ENTERIC TABLET PO SCH (09:10)
[2023-03-27] MEDS: ASCORBIC ACID 500 MG TAB PO SCH (09:10)
[2023-03-27] MEDS: VITAMIN D 1,000 INTERNATIONAL UNITS TABLET PO SCH (09:10)
[2023-03-27] MEDS: OMEGA-3 1000MG CAPSULE PO SCH (09:10)
[2023-03-27] MEDS: LACTOBACILLUS ACIDOPHILUS CAP (BACID) PO SCH ×2 (09:10→12:46)
[2023-03-27] MEDS: ATORVASTATIN 20 MG TAB PO SCH (09:10)
[2023-03-27] MEDS: BRIMONIDINE 0.1% OPHTH SOLN 5ML OS SCH (09:11)
[2023-03-27] MEDS: INSULIN LISPRO (NovoLOG) PER UNIT SC SCH ×2 (09:11→12:00)
[2023-03-27 11:18] VITALS: BP 142/82
[2023-03-27] MEDS ORDERED: METO1TAB32 PO ×2 (11:45→13:10)
[2023-03-27] MEDS ORDERED: DOXY100T PO ×3 (11:45→13:10)
[2023-03-27] MEDS ORDERED: LISI40TA4 PO ×2 (11:45→13:10)
[2023-03-27] MEDS ORDERED: ATOR1TAB21 PO ×2 (11:45→13:10)
[2023-03-27] MEDS ORDERED: AMLO1TAB25 PO ×2 (11:45→13:10)
[2023-03-27 14:00] VITALS: BP 154/90; TEMP 97.7; O2SAT 97
== END 2023-03-27 17:21 | disposition home or self-care (01) | DRG 623 ==
LOC: EDBD 14:12 → M ED 16:49 → M ED INP 22:25 → M MSPAV 03-25 01:37
PROVIDERS: ADMIT Internal Medicine; ATTEND Internal Medicine
PROC: 0JBR0ZZ Excision of Left Foot Subcutaneous Tissue and Fascia, Open Approach (ICD-10-PCS; principal; 2023-03-25)
DX: E11.621 Type 2 diabetes mellitus with foot ulcer (principal); I16.9 Hypertensive crisis, unspecified; I24.8 Other forms of acute ischemic heart disease; I11.9 Hypertensive heart disease without heart failure; I25.10 Atherosclerotic heart disease of native coronary artery without angina pectoris; E55.9 Vitamin D deficiency, unspecified; H40.9 Unspecified glaucoma; E11.40 Type 2 diabetes mellitus with diabetic neuropathy, unspecified; L97.529 Non-pressure chronic ulcer of other part of left foot with unspecified severity; Z79.899 Other long term (current) drug therapy; Z89.421 Acquired absence of other right toe(s)

== ENCOUNTER → 2023-04-03 | Outpatient (REF) | payer MEDICARE, MEDICAID ==
[~2023-04-03] MED LIST changes: +AMLO1TAB25 PO; +ATOR1TAB21 PO; +DOXY100T PO; +LISI20TA33 PO; +METO1TAB32 PO; +MULTTAB79 PO; +OMEG100011 PO; +RA B1TAB7 PO; +TURM500C5 PO; +VITA100066 PO; +tumeric PO
[2023-04-03 19:06] LABS: CREATININE, URINE 59.5 MG/DL
[2023-04-03 19:07] LABS: MAU/CREAT RATIO 122.6 MCG/MG (0.0-30.0)
== END ==
LOC: M SFHCCAPE 17:00
PROVIDERS: ATTEND Physician Assistant
DX: I10 Essential (primary) hypertension (principal); E11.8 Type 2 diabetes mellitus with unspecified complications; R07.81 Pleurodynia; F10.20 Alcohol dependence, uncomplicated; E78.2 Mixed hyperlipidemia

== ENCOUNTER 2023-07-22 19:49 | Emergency (ER) | payer MEDICARE, MEDICAID ==
[~2023-07-22] VITALS: Ht 180.3 cm; Wt 113.7 kg
[2023-07-22 20:18] VITALS: TEMP 97.8
[2023-07-22 20:23] LABS: VENOUS BASE EXCESS -5.1 (-2.0-2.0); VENOUS O2 SATURATION 61.2 % (60.0-80.0); VENOUS PARTIAL PRESSURE CO2 37.3 mmHg (38.0-50.0); VENOUS PARTIAL PRESSURE O2 35.2 mmHg (30.0-50.0); VENOUS PH 7.347 UNITS (7.330-7.430); VENOUS STANDARD HCO3 19.6 MMOL/L; VENOUS TOTAL CO2 21.1 MMOL/L (24.0-28.0)
[2023-07-22 20:48] LABS: BASO # 0.1 10^3/uL (0.0-0.2); BASO % 1.1 % (0.0-1.0); EOS # 0.2 10^3/uL (0.0-0.5); EOS % 2.4 % (0.0-3.0); HEMATOCRIT 36.6 % (42.0-52.0); HEMOGLOBIN 12.4 g/dl (13.5-17.5); LYMPH # 1.7 10^3/uL (1.5-5.0); LYMPH % 20.3 % (24.0-44.0); MEAN CORPUSCULAR HEMOGLOBIN 31.9 pg (27.0-33.0); MEAN CORPUSCULAR HGB CONC 33.9 g/dl (32.0-36.5); MEAN CORPUSCULAR VOLUME 94.1 fl (80.0-96.0); MONO # 0.6 10^3/uL (0.0-0.8); MONO % 7.3 % (2.0-8.0); NEUTROPHILS # 5.7 10^3/uL (1.5-8.5); NEUTROPHILS % 68.7 % (36.0-66.0); PLATELET COUNT, AUTOMATED 277 10^3/uL (150-450); RED BLOOD COUNT 3.89 10^6/uL (4.30-6.10); WHITE BLOOD COUNT 8.2 10^3/uL (4.0-10.0)
[2023-07-22 20:49] LABS: CK-MB VALUE MASS < 1.0 NG/ML (<3.6); ETHYL ALCOHOL (ETHANOL) 0.274 % (0.000-0.010)
[2023-07-22 20:51] LABS: ALBUMIN 3.7 G/DL (3.2-5.2); ALKALINE PHOSPHATASE 94 U/L (46-116); ALT/SGPT 20 U/L (7.0-40); AST/SGOT 12 U/L (<34); BILIRUBIN,DIRECT 0.1 MG/DL (<0.4); BILIRUBIN,TOTAL 0.3 MG/DL (0.3-1.2); BLOOD UREA NITROGEN 32 MG/DL (9-23); CALCIUM LEVEL 9.1 MG/DL (8.3-10.6); CARBON DIOXIDE LEVEL 23 MMOL/L (20-31); CHLORIDE LEVEL 102 MMOL/L (98-107); CPK CREATINE PHOSPHOKINASE 124 U/L (46-171); CREATININE FOR GFR 1.11 MG/DL (0.70-1.30); GLOMERULAR FILTRATION RATE > 60.0 (>49); GLUCOSE, FASTING 330 MG/DL (74-106); POTASSIUM SERUM 4.4 MMOL/L (3.5-5.1); SALICYLATE LEVEL < 3.0 MG/DL (<30); SODIUM LEVEL 136 MMOL/L (136-145); TOTAL PROTEIN 6.5 G/DL (5.7-8.2)
[2023-07-22 20:53] LABS: THYROID STIMULATING HORMONE 1.432 uIU/ML (0.55-4.78)
[2023-07-22 21:00] LABS: RSV AMPLIFICATION NEGATIVE (NEGATIVE)
[2023-07-22] MEDS ORDERED: THIAMINE 100 MG TAB PO ONE (21:40)
[2023-07-22] MEDS ORDERED: NS 1,000 ML IV ONE (21:40)
[2023-07-22] MEDS ORDERED: FOLIC ACID 1MG TAB PO ONE (21:45)
[2023-07-22 22:27] LABS: CK-MB VALUE MASS < 1.0 NG/ML (<3.6)
[2023-07-22 22:29] LABS: CPK CREATINE PHOSPHOKINASE 127 U/L (46-171); MB/CK RELATIVE INDEX 0.78 (< OR =4)
[2023-07-22] MEDS ORDERED: LEVEMIR (INSULIN DETEMIR) 1 UNITS/0.01ML SC ONE (22:40)
[2023-07-22 22:45] VITALS: BP 132/76; O2SAT 94
== END 2023-07-23 02:35 | disposition home or self-care (01) ==
LOC: M ED 19:49
DX: F10.129 Alcohol abuse with intoxication, unspecified (principal); S00.03XA Contusion of scalp, initial encounter; W19.XXXA Unspecified fall, initial encounter; I44.0 Atrioventricular block, first degree; I44.4 Left anterior fascicular block; E11.9 Type 2 diabetes mellitus without complications; I10 Essential (primary) hypertension; E78.5 Hyperlipidemia, unspecified; Z79.84 Long term (current) use of oral hypoglycemic drugs; Z79.01 Long term (current) use of anticoagulants; Z91.048 Other nonmedicinal substance allergy status; Y92.9 Unspecified place or not applicable; Y93.9 Activity, unspecified; Y99.9 Unspecified external cause status; Z79.82 Long term (current) use of aspirin; Z79.02 Long term (current) use of antithrombotics/antiplatelets; Z79.811 Long term (current) use of aromatase inhibitors; Z79.4 Long term (current) use of insulin; Z79.899 Other long term (current) drug therapy
CPT/HCPCS: 70450; 71045; 72125; 80047; 80048; 80076; 80143; 82077; 82140; 82550; 82553; 82803; 83605; 84443; 84484; 85025; 87631; 93005; 93041; 94760; 96372; 99285; J1815

== ENCOUNTER → 2023-09-18 | Outpatient (REF) | payer MEDICARE, MEDICAID | LOC: M LAB REF 16:08 | PROVIDERS: ATTEND Podiatrist | DX: L03.125 Acute lymphangitis of right lower limb (principal); B95.8 Unspecified staphylococcus as the cause of diseases classified elsewhere ==

== ENCOUNTER 2024-01-25 20:46 | Emergency (ER) | payer MEDICARE, MEDICAID ==
[~2024-01-25] VITALS: Ht 177.8 cm; Wt 103.4 kg
[2024-01-25 21:54] VITALS: BP 133/62; TEMP 97.4; O2SAT 96
== END 2024-01-25 21:50 | disposition left against medical advice (07) ==
LOC: M ED 20:46
DX: Z53.21 Procedure and treatment not carried out due to patient leaving prior to being seen by health care provider (principal)

== ENCOUNTER → 2024-03-20 | Outpatient (REF) | payer MEDICARE, MEDICAID ==
[2024-03-20 19:09] LABS: BASO # 0.1 10^3/uL (0.0-0.2); BASO % 1.3 % (0.0-1.0); EOS # 0.3 10^3/uL (0.0-0.5); EOS % 3.4 % (0.0-3.0); HEMATOCRIT 38.6 % (42.0-52.0); HEMOGLOBIN 12.6 g/dl (13.5-17.5); LYMPH # 2.4 10^3/uL (1.5-5.0); MEAN CORPUSCULAR HEMOGLOBIN 31.1 pg (27.0-33.0); MEAN CORPUSCULAR HGB CONC 32.6 g/dl (32.0-36.5); MEAN CORPUSCULAR VOLUME 95.3 fl (80.0-96.0); MONO # 0.6 10^3/uL (0.0-0.8); MONO % 7.5 % (2.0-8.0); NEUTROPHILS # 4.8 10^3/uL (1.5-8.5); NEUTROPHILS % 58.7 % (36.0-66.0); PLATELET COUNT, AUTOMATED 312 10^3/uL (150-450); RED BLOOD COUNT 4.05 10^6/uL (4.30-6.10); WHITE BLOOD COUNT 8.2 10^3/uL (4.0-10.0)
[2024-03-20 19:23] LABS: HEMOGLOBIN A1c 7.7 % (4.0-6.0)
[2024-03-20 19:25] LABS: PSA SCREENING 0.46 NG/ML (< 4.00)
[2024-03-20 19:28] LABS: ALBUMIN 3.6 G/DL (3.2-5.2); ALKALINE PHOSPHATASE 91 U/L (46-116); ALT/SGPT 22 U/L (7.0-40); AST/SGOT 13 U/L (<34); BILIRUBIN,TOTAL 0.3 MG/DL (0.3-1.2); BLOOD UREA NITROGEN 34 MG/DL (9-23); CALCIUM LEVEL 9.6 MG/DL (8.3-10.6); CARBON DIOXIDE LEVEL 27 MMOL/L (20-31); CHLORIDE LEVEL 107 MMOL/L (98-107); CHOLESTEROL LEVEL 135 MG/DL (<200); CHOLESTEROL RISK RATIO 3.39 (<5); CREATININE FOR GFR 1.41 MG/DL (0.70-1.30); FREE T4 1.42 NG/DL (0.89-1.76); GLOMERULAR FILTRATION RATE 53.4 (>49); GLUCOSE, FASTING 129 MG/DL (74-106); HDL CHOLESTEROL 39.8 MG/DL (>40); LDL CHOLESTEROL 78.2 MG/DL (<100); NON-HDL-C 95.2 MG/DL; POTASSIUM SERUM 4.4 MMOL/L (3.5-5.1); SODIUM LEVEL 140 MMOL/L (136-145); TOTAL PROTEIN 6.2 G/DL (5.7-8.2); TRIGLYCERIDES LEVEL 85 MG/DL (<150)
[2024-03-20 19:29] LABS: FOLATE > 24.0 NG/ML (>5.4); THYROID STIMULATING HORMONE 1.213 uIU/ML (0.55-4.78)
[2024-03-20 19:30] LABS: TOTAL 25(OH) VITAMIN D 64.6 NG/ML (20.0-100.0); VITAMIN B12 LEVEL 479 PG/ML (211-911)
== END ==
LOC: M SFHCCAPE 08:13
PROVIDERS: ATTEND Physician Assistant Medical
DX: E11.8 Type 2 diabetes mellitus with unspecified complications (principal); F32.2 Major depressive disorder, single episode, severe without psychotic features; I10 Essential (primary) hypertension; Z12.5 Encounter for screening for malignant neoplasm of prostate; Z79.899 Other long term (current) drug therapy
CPT/HCPCS: 80053; 80061; 82306; 82607; 82746; 83036; 84439; 84443; 85025; G0103

== ENCOUNTER 2024-07-14 06:26 | Inpatient (IN) | payer MEDICARE, MEDICAID ==
[~2024-07-14] VITALS: Ht 180.3 cm; Wt 100.0 kg
[~2024-07-14 06:26] MED LIST changes: +BRIM1OPD OD; -BRIM1OPD OS
[2024-07-14] MEDS ORDERED: LIDOCAINE 5% (LIDODERM) PATCH TD ONE (08:25)
[2024-07-14] MEDS: ACETAMINOPHEN *IV* 1,000 MG in IV 1 EA IV ONE (08:33)
[2024-07-14 09:00] LABS: BASO # 0.2 10^3/uL (0.0-0.2); BASO % 0.8 % (0.0-1.0); EOS # 0.3 10^3/uL (0.0-0.5); EOS % 1.4 % (0.0-3.0); HEMATOCRIT 34.2 % (42.0-52.0); HEMOGLOBIN 11.3 g/dl (13.5-17.5); LYMPH # 0.6 10^3/uL (1.5-5.0); LYMPH % 2.9 % (24.0-44.0); MEAN CORPUSCULAR HEMOGLOBIN 30.6 pg (27.0-33.0); MEAN CORPUSCULAR VOLUME 92.7 fl (80.0-96.0); MONO # 1.1 10^3/uL (0.0-0.8); MONO % 5.7 % (2.0-8.0); NEUTROPHILS # 16.7 10^3/uL (1.5-8.5); NEUTROPHILS % 88.2 % (36.0-66.0); PLATELET COUNT, AUTOMATED 540 10^3/uL (150-450); RED BLOOD COUNT 3.69 10^6/uL (4.30-6.10); WHITE BLOOD COUNT 18.9 10^3/uL (4.0-10.0)
[2024-07-14 09:21] LABS: C REACTIVE PROTEIN QUANTITATIV 23.6 MG/DL (<1.0)
[2024-07-14 09:22] LABS: CALCIUM LEVEL 9.3 MG/DL (8.3-10.6); CREATININE FOR GFR 1.41 MG/DL (0.70-1.30); GLOMERULAR FILTRATION RATE 53.2 (>49); POTASSIUM SERUM 4.6 MMOL/L (3.5-5.1)
[2024-07-14 09:38] LABS: ERYTHROCYTE SEDIMENTATION RATE > 130 mm/hr (0-20)
[2024-07-14 09:51] LABS: PROCALCITONIN 0.21 ng/ml
[2024-07-14] MEDS: NS 3,000 ML in IV 1 EA IV ONE (09:57)
[2024-07-14] MEDS: PIPERACILLIN/TAZOBACTAM SOD 4.5 GM in DEXTROSE 5% (D5W) ADV/MINI-BAG 50 ML IV ONE (11:00)
[2024-07-14] MEDS ORDERED: ATOR1TAB21 PO (11:19)
[2024-07-14] MEDS ORDERED: AMLO1TAB25 PO (11:19)
[2024-07-14] MEDS ORDERED: METO1TAB7 PO (11:22)
[2024-07-14] MEDS ORDERED: LANTINJ4 SUBQ (11:27)
[2024-07-14] MEDS ORDERED: SILV50CR TOP (11:27)
[2024-07-14] MEDS ORDERED: HOME MED LIST COMPLETE! XX SCH (11:30)
[2024-07-14] MEDS ORDERED: GLUCOSE 4 GM CHEW PO PRN (12:15)
[2024-07-14] MEDS ORDERED: DEXTROSE 50% 50ML SYRINGE IV PRN (12:15)
[2024-07-14] MEDS ORDERED: GLUCAGON INJ 1MG VIAL SC PRN (12:15)
[2024-07-14] MEDS ORDERED: PROHANCE 279.3MG/ML 5ML VIAL As Ordered ONE (12:42)
[2024-07-14] MEDS ORDERED: PROHANCE 279.3MG/ML 15ML VIAL As Ordered ONE (12:43)
[2024-07-14 12:50] LABS: ALBUMIN 2.5 G/DL (3.2-5.2); BILIRUBIN,DIRECT 0.2 MG/DL (<0.4); BILIRUBIN,TOTAL 0.5 MG/DL (0.3-1.2); TOTAL PROTEIN 6.9 G/DL (5.7-8.2)
[2024-07-14] MEDS: VANCOMYCIN/WATER FOR INJ (PEG) 2,000 MG in IV 1 EA IV ONE (13:43)
[2024-07-14] MEDS: METOPROLOL SUCC (TopROL XL) 50MG **XL** TAB PO SCH (14:55)
[2024-07-14] MEDS: ASPIRIN 81MG ENTERIC TABLET PO SCH (14:55)
[2024-07-14] MEDS: CEFEPIME HCL 2 GM in DEXTROSE 5% (D5W) ADV/MINI-BAG 50 ML IV SCH (16:27)
[2024-07-14 16:40] VITALS: BP 145/67; TEMP 97.3; O2SAT 97
[2024-07-14 16:48] LABS: SOURCE, BODY FLUID LFT KNEE; SYNOVIAL FLUID COLOR COLORLESS (COLORLESS)
[2024-07-14 16:52] LABS: CRYSTALS, BODY FLUID NONE SEEN (NONE SEEN); SOURCE, BODY FLUID CRYSTALS LFT KNEE
[2024-07-14] MEDS: INSULIN LISPRO (NovoLOG) PER UNIT SC SCH ×2 (17:30→20:34)
[2024-07-14] MEDS ORDERED: PERCOCET 5MG/325MG TAB PO PRN (19:55)
[2024-07-14] MEDS ORDERED: NALOXONE INJ 0.4MG/1ML VIAL IV PRN (19:55)
[2024-07-14] MEDS ORDERED: ACETAMINOPHEN 325 MG TAB PO PRN (19:55)
[2024-07-14 20:07] VITALS: BP 136/62; TEMP 97.5; O2SAT 96
[2024-07-14] MEDS: PERCOCET 5MG/325MG TAB PO PRN (20:18)
[2024-07-14] MEDS: OMEGA-3 1000MG CAPSULE PO SCH (20:19)
[2024-07-14] MEDS: CLOPIDOGREL 75 MG TAB PO SCH (20:19)
[2024-07-14] MEDS: ASCORBIC ACID 500 MG TAB PO SCH (20:19)
[2024-07-14] MEDS: LATANOPROST 0.005% OPHTH SOLN 2.5 ML OU SCH (20:19)
[2024-07-14] MEDS: lisinopriL 40MG TAB PO SCH (20:19)
[2024-07-14] MEDS: SILVER SULFADIAZINE 1% CR 50 GM JAR TOP SCH (20:20)
[2024-07-14] MEDS: BRIMONIDINE 0.1% OPHTH SOLN 5ML OD SCH (20:20)
[2024-07-14] MEDS: ENOXAPARIN 40MG/0.4ML SYRINGE (J1650 PER 10MG) SC SCH (20:35)
[2024-07-14] MEDS: LEVEMIR (INSULIN DETEMIR) 1 UNITS/0.01ML SC SCH (21:18)
[2024-07-15] MEDS: VANCOMYCIN 1,250 MG/250 ML IV BAG IV SCH (01:45)
[2024-07-15 04:00] VITALS: BP 123/57; TEMP 97; O2SAT 95
[2024-07-15 07:16] LABS: HEMATOCRIT 29.8 % (42.0-52.0); HEMOGLOBIN 9.7 g/dl (13.5-17.5); MEAN CORPUSCULAR HGB CONC 32.6 g/dl (32.0-36.5); MEAN CORPUSCULAR VOLUME 92.3 fl (80.0-96.0); PLATELET COUNT, AUTOMATED 480 10^3/uL (150-450); RED BLOOD COUNT 3.23 10^6/uL (4.30-6.10); WHITE BLOOD COUNT 17.7 10^3/uL (4.0-10.0)
[2024-07-15 08:24] LABS: CALCIUM LEVEL 8.2 MG/DL (8.3-10.6); CREATININE FOR GFR 1.29 MG/DL (0.70-1.30); POTASSIUM SERUM 3.5 MMOL/L (3.5-5.1)
[2024-07-15] MEDS: ATORVASTATIN 20 MG TAB PO SCH (08:35)
[2024-07-15] MEDS: VITAMIN D 1,000 INTERNATIONAL UNITS TABLET PO SCH (08:37)
[2024-07-15] MEDS: NYSTATIN 100,000 UNITS/GM TOPICAL PWD 15GM TOP SCH (08:40)
[2024-07-15] MEDS: LACTIC ACID 12% LOTION 225 GM BTL EXT SCH (09:00)
[2024-07-15 12:00] VITALS: BP 120/60; TEMP 97.7; O2SAT 96
[2024-07-15 13:39] LABS: VANCOMYCIN LEVEL TROUGH 20.1 UG/ML (10.0-20.0)
[2024-07-15 15:41] LABS: URIC ACID 6.7 MG/DL (3.7-9.2)
[2024-07-15] MEDS: CEPACOL LOZENGE PO PRN (16:57)
[2024-07-15 20:36] VITALS: BP 116/64; TEMP 97.7; O2SAT 94
[2024-07-15] MEDS: cefTRIAXone SOD 2 GM in DEXTROSE 5% (D5W) ADV/MINI-BAG 50 ML IV SCH (22:14)
[2024-07-16 04:26] VITALS: BP 114/61; TEMP 97.5; O2SAT 95
[2024-07-16] MEDS ORDERED: cefTRIAXone SOD 2GM VIAL IM SCH (06:00)
[2024-07-16 07:46] LABS: BASO # 0.1 10^3/uL (0.0-0.2); BASO % 0.7 % (0.0-1.0); EOS # 0.5 10^3/uL (0.0-0.5); EOS % 4.4 % (0.0-3.0); HEMATOCRIT 29.3 % (42.0-52.0); HEMOGLOBIN 9.7 g/dl (13.5-17.5); MEAN CORPUSCULAR HEMOGLOBIN 30.4 pg (27.0-33.0); MEAN CORPUSCULAR HGB CONC 33.1 g/dl (32.0-36.5); MEAN CORPUSCULAR VOLUME 91.8 fl (80.0-96.0); MONO # 0.7 10^3/uL (0.0-0.8); MONO % 5.5 % (2.0-8.0); NEUTROPHILS # 9.8 10^3/uL (1.5-8.5); NEUTROPHILS % 80.7 % (36.0-66.0); PLATELET COUNT, AUTOMATED 462 10^3/uL (150-450); RED BLOOD COUNT 3.19 10^6/uL (4.30-6.10); WHITE BLOOD COUNT 12.1 10^3/uL (4.0-10.0)
[2024-07-16 07:54] LABS: CALCIUM LEVEL 8.6 MG/DL (8.3-10.6); CREATININE FOR GFR 1.37 MG/DL (0.70-1.30); MAGNESIUM LEVEL 1.2 MG/DL (1.8-2.4); POTASSIUM SERUM 3.6 MMOL/L (3.5-5.1)
[2024-07-16] MEDS: VANCOMYCIN 750MG/150 ML IV BAG IV SCH (10:04)
[2024-07-16] MEDS: BRIMONIDINE 0.1% OPHTH SOLN 5ML OD SCH (17:00)
[2024-07-16 19:56] VITALS: BP 129/60; TEMP 97.5; O2SAT 98
[2024-07-16] MEDS: BOOSTRIX VACCINE (TETANUS/DIPHTH/ACEL. PERTUSSIS) 0.5ML SYR IM ONE (20:47)
[2024-07-17 04:00] VITALS: BP 155/80; TEMP 97.9; O2SAT 95
[2024-07-17 06:17] LABS: HEMATOCRIT 28.6 % (42.0-52.0); HEMOGLOBIN 9.5 g/dl (13.5-17.5); MEAN CORPUSCULAR HEMOGLOBIN 30.3 pg (27.0-33.0); MEAN CORPUSCULAR HGB CONC 33.2 g/dl (32.0-36.5); MEAN CORPUSCULAR VOLUME 91.1 fl (80.0-96.0); PLATELET COUNT, AUTOMATED 481 10^3/uL (150-450); RED BLOOD COUNT 3.14 10^6/uL (4.30-6.10); WHITE BLOOD COUNT 10.3 10^3/uL (4.0-10.0)
[2024-07-17 06:34] LABS: BLOOD UREA NITROGEN 25 MG/DL (9-23); CALCIUM LEVEL 8.3 MG/DL (8.3-10.6); CARBON DIOXIDE LEVEL 26 MMOL/L (20-31); CHLORIDE LEVEL 104 MMOL/L (98-107); CREATININE FOR GFR 1.16 MG/DL (0.70-1.30); GLOMERULAR FILTRATION RATE > 60.0 (>49); GLUCOSE, FASTING 144 MG/DL (74-106); POTASSIUM SERUM 3.6 MMOL/L (3.5-5.1); SODIUM LEVEL 137 MMOL/L (136-145)
[2024-07-17] MEDS: VANCOMYCIN 1,500 MG/300 ML IV BAG IV SCH (10:13)
[2024-07-17 12:00] VITALS: BP 140/71; TEMP 97.9; O2SAT 94
[2024-07-17] MEDS ORDERED: SENNA 8.6 MG TAB (SENOKOT) PO PRN (12:35)
[2024-07-17] MEDS ORDERED: MIRALAX *UNIT DOSE* 17GM PACKET PO PRN (12:35)
[2024-07-17] MEDS: INSULIN LISPRO (NovoLOG) PER UNIT SC SCH (17:30)
[2024-07-17 20:00] VITALS: BP 138/68; TEMP 97.7; O2SAT 96
[2024-07-18 04:00] VITALS: BP 167/74; TEMP 96.8; O2SAT 96
[2024-07-18 07:07] LABS: HEMATOCRIT 28.6 % (42.0-52.0); HEMOGLOBIN 9.3 g/dl (13.5-17.5); MEAN CORPUSCULAR HEMOGLOBIN 29.7 pg (27.0-33.0); MEAN CORPUSCULAR HGB CONC 32.5 g/dl (32.0-36.5); MEAN CORPUSCULAR VOLUME 91.4 fl (80.0-96.0); PLATELET COUNT, AUTOMATED 486 10^3/uL (150-450); RED BLOOD COUNT 3.13 10^6/uL (4.30-6.10); WHITE BLOOD COUNT 9.7 10^3/uL (4.0-10.0)
[2024-07-18 07:39] LABS: BLOOD UREA NITROGEN 21 MG/DL (9-23); CALCIUM LEVEL 8.2 MG/DL (8.3-10.6); CARBON DIOXIDE LEVEL 27 MMOL/L (20-31); CHLORIDE LEVEL 104 MMOL/L (98-107); CREATININE FOR GFR 0.99 MG/DL (0.70-1.30); GLOMERULAR FILTRATION RATE > 60.0 (>49); GLUCOSE, FASTING 155 MG/DL (74-106); POTASSIUM SERUM 3.5 MMOL/L (3.5-5.1); SODIUM LEVEL 139 MMOL/L (136-145)
[2024-07-18 11:50] VITALS: BP 164/77; TEMP 97.3; O2SAT 97
[2024-07-18 20:00] VITALS: BP 104/75; TEMP 97.3; O2SAT 97
[2024-07-19 04:00] VITALS: BP 184/95; TEMP 97.2; O2SAT 97
[2024-07-19 06:12] LABS: HEMATOCRIT 32.3 % (42.0-52.0); HEMOGLOBIN 10.6 g/dl (13.5-17.5); MEAN CORPUSCULAR HEMOGLOBIN 29.7 pg (27.0-33.0); MEAN CORPUSCULAR HGB CONC 32.8 g/dl (32.0-36.5); MEAN CORPUSCULAR VOLUME 90.5 fl (80.0-96.0); PLATELET COUNT, AUTOMATED 509 10^3/uL (150-450); RED BLOOD COUNT 3.57 10^6/uL (4.30-6.10); WHITE BLOOD COUNT 10.6 10^3/uL (4.0-10.0)
[2024-07-19 06:39] LABS: BLOOD UREA NITROGEN 16 MG/DL (9-23); CALCIUM LEVEL 8.6 MG/DL (8.3-10.6); CARBON DIOXIDE LEVEL 26 MMOL/L (20-31); CHLORIDE LEVEL 106 MMOL/L (98-107); CREATININE FOR GFR 0.85 MG/DL (0.70-1.30); GLOMERULAR FILTRATION RATE > 60.0 (>49); GLUCOSE, FASTING 110 MG/DL (74-106); POTASSIUM SERUM 3.4 MMOL/L (3.5-5.1); SODIUM LEVEL 142 MMOL/L (136-145)
[2024-07-19 08:01] LABS: MAGNESIUM LEVEL 1.2 MG/DL (1.8-2.4)
[2024-07-19] MEDS: POTASSIUM CHLORIDE 10MEQ SR TABLET PO ONE (09:26)
[2024-07-19 12:00] VITALS: BP 168/81; TEMP 97.5; O2SAT 94
[2024-07-19] MEDS: VANCOMYCIN HCL 1,500 MG in NS 500 ML IV SCH (12:10)
[2024-07-19 19:32] LABS: LYME TOTAL ANTIBODY CIA <= 0.90 Index (<=0.90)
[2024-07-19 20:00] VITALS: BP 161/72; TEMP 97; O2SAT 98
[2024-07-20 04:00] VITALS: BP 119/84; TEMP 97.3; O2SAT 98
[2024-07-20 06:44] LABS: HEMATOCRIT 31.2 % (42.0-52.0); HEMOGLOBIN 10.1 g/dl (13.5-17.5); MEAN CORPUSCULAR HEMOGLOBIN 29.6 pg (27.0-33.0); MEAN CORPUSCULAR HGB CONC 32.4 g/dl (32.0-36.5); MEAN CORPUSCULAR VOLUME 91.5 fl (80.0-96.0); PLATELET COUNT, AUTOMATED 472 10^3/uL (150-450); RED BLOOD COUNT 3.41 10^6/uL (4.30-6.10); WHITE BLOOD COUNT 8.8 10^3/uL (4.0-10.0)
[2024-07-20 06:59] LABS: BLOOD UREA NITROGEN 15 MG/DL (9-23); CALCIUM LEVEL 8.5 MG/DL (8.3-10.6); CARBON DIOXIDE LEVEL 29 MMOL/L (20-31); CHLORIDE LEVEL 107 MMOL/L (98-107); CREATININE FOR GFR 0.93 MG/DL (0.70-1.30); GLOMERULAR FILTRATION RATE > 60.0 (>49); GLUCOSE, FASTING 129 MG/DL (74-106); POTASSIUM SERUM 3.3 MMOL/L (3.5-5.1); SODIUM LEVEL 141 MMOL/L (136-145)
[2024-07-20 10:02] VITALS: BP 169/82
[2024-07-20] MEDS: VANCOMYCIN 1,500 MG/300 ML IV BAG IV SCH (11:07)
[2024-07-20 12:16] VITALS: BP 165/78; TEMP 97.2; O2SAT 98
[2024-07-20 12:24] VITALS: BP 165/78
[2024-07-20] MEDS ORDERED: LINE1TAB6 PO (12:56)
== END 2024-07-20 15:07 | disposition home or self-care (01) | DRG 464 ==
LOC: M ED 06:26 → M ED INP 11:43 → M MS5PR 16:30
PROVIDERS: ADMIT Internal Medicine; ATTEND Student in an Organized Health Care Education/Training Program
PROC: 0JBR0ZZ Excision of Left Foot Subcutaneous Tissue and Fascia, Open Approach (ICD-10-PCS; principal; 2024-07-16)
DX: M00.862 Arthritis due to other bacteria, left knee (principal); L03.116 Cellulitis of left lower limb; L97.229 Non-pressure chronic ulcer of left calf with unspecified severity; E11.22 Type 2 diabetes mellitus with diabetic chronic kidney disease; N18.9 Chronic kidney disease, unspecified; I25.10 Atherosclerotic heart disease of native coronary artery without angina pectoris; E11.628 Type 2 diabetes mellitus with other skin complications; I12.9 Hypertensive chronic kidney disease with stage 1 through stage 4 chronic kidney disease, or unspecified chronic kidney disease; E11.621 Type 2 diabetes mellitus with foot ulcer; E11.42 Type 2 diabetes mellitus with diabetic polyneuropathy; Z89.421 Acquired absence of other right toe(s); E55.9 Vitamin D deficiency, unspecified; Z79.899 Other long term (current) drug therapy; Z79.82 Long term (current) use of aspirin; L97.529 Non-pressure chronic ulcer of other part of left foot with unspecified severity

== ENCOUNTER → 2024-08-05 | Outpatient (REF) | payer MEDICARE, MEDICAID ==
[~2024-08-05] MED LIST changes: +LANTINJ4 SUBQ; +LINE1TAB6 PO; +METO1TAB7 PO; +SILV50CR TOP
[2024-08-05 18:58] LABS: BASO # 0.1 10^3/uL (0.0-0.2); BASO % 1.1 % (0.0-1.0); EOS # 0.6 10^3/uL (0.0-0.5); EOS % 8.7 % (0.0-3.0); HEMATOCRIT 31.1 % (42.0-52.0); HEMOGLOBIN 10.1 g/dl (13.5-17.5); LYMPH # 1.8 10^3/uL (1.5-5.0); MEAN CORPUSCULAR HEMOGLOBIN 30.6 pg (27.0-33.0); MEAN CORPUSCULAR HGB CONC 32.5 g/dl (32.0-36.5); MEAN CORPUSCULAR VOLUME 94.2 fl (80.0-96.0); MONO # 0.5 10^3/uL (0.0-0.8); MONO % 6.8 % (2.0-8.0); NEUTROPHILS # 4.3 10^3/uL (1.5-8.5); NEUTROPHILS % 59.1 % (36.0-66.0); PLATELET COUNT, AUTOMATED 392 10^3/uL (150-450); WHITE BLOOD COUNT 7.3 10^3/uL (4.0-10.0)
[2024-08-05 19:24] LABS: BLOOD UREA NITROGEN 20 MG/DL (9-23); CALCIUM LEVEL 9.2 MG/DL (8.3-10.6); CARBON DIOXIDE LEVEL 28 MMOL/L (20-31); CHLORIDE LEVEL 105 MMOL/L (98-107); CREATININE FOR GFR 0.94 MG/DL (0.70-1.30); GLOMERULAR FILTRATION RATE > 60.0 (>49); GLUCOSE, FASTING 167 MG/DL (74-106); MAGNESIUM LEVEL 1.2 MG/DL (1.8-2.4); POTASSIUM SERUM 3.8 MMOL/L (3.5-5.1); SODIUM LEVEL 141 MMOL/L (136-145)
== END ==
LOC: M SFHCCAPE 08:44
PROVIDERS: ATTEND Physician Assistant Medical
DX: I10 Essential (primary) hypertension (principal); E11.628 Type 2 diabetes mellitus with other skin complications; L03.116 Cellulitis of left lower limb; L97.509 Non-pressure chronic ulcer of other part of unspecified foot with unspecified severity

== ENCOUNTER 2025-03-26 17:38 | Inpatient (IN) | payer MEDICARE, MEDICAID ==
[~2025-03-26] VITALS: Ht 182.9 cm; Wt 88.7 kg
[~2025-03-26 17:38] MED LIST changes: -BRIM1OPD OD; +BRIM5DRO25 OD; +LISI40TA10 PO; -LISI40TA4 PO
[2025-03-26] MEDS: ACETAMINOPHEN *IV* 1,000 MG in IV 1 EA IV ONE (18:11)
[2025-03-26] MEDS: NS (Normal Saline) 0.9% 1,000 ML IV ONE (18:11)
[2025-03-26 18:54] LABS: APPEARANCE, URINE HAZY (CLEAR); BACTERIA, URINE AUTO NEGATIVE (NEGATIVE); BILIRUBIN, URINE AUTO NEGATIVE (NEGATIVE); BLOOD, URINE BLOOD 3+ (NEGATIVE); GLUCOSE, URINE (UA) AUTO 3+ mg/dL (NEGATIVE); GRANULAR CAST, URINE AUTO 58 /LPF; KETONE, URINE AUTO TRACE mg/dL (NEGATIVE); LEUKOCYTE ESTERASE, URINE AUTO NEGATIVE (NEGATIVE); MUCUS, URINE SMALL (NEGATIVE); NITRITE, URINE AUTO NEGATIVE (NEGATIVE); PROTEIN, URINE AUTO 3+ mg/dL (NEGATIVE); RBC, URINE AUTO 0 /HPF (0-3); SPECIFIC GRAVITY URINE AUTO 1.021 (1.002-1.035); SQUAMOUS EPITHELIAL CELL UR AU 1 /HPF (0-6); UROBILINOGEN, URINE AUTO 2.0 mg/dL (0.0-2.0); WBC, URINE AUTO 1 /HPF (0-3)
[2025-03-26] MEDS: [UNRECOGNIZED DRUG - OTHER] IV ONE (19:31)
[2025-03-26] MEDS: NS 0.9% IV ONE (19:31)
[2025-03-26 19:44] LABS: PLATELET COUNT, AUTOMATED 135 10^3/uL (150-450)
[2025-03-26 19:45] LABS: CREATININE FOR GFR 1.72 MG/DL (0.70-1.30); GLOMERULAR FILTRATION RATE 42.8 (>49); POTASSIUM SERUM 4.1 MMOL/L (3.5-5.1); SODIUM LEVEL 136 MMOL/L (136-145)
[2025-03-26 19:46] LABS: ALT/SGPT 35 U/L (7.0-40); AST/SGOT 140 U/L (<34); CALCIUM LEVEL 8.8 MG/DL (8.3-10.6); CARBON DIOXIDE LEVEL 20.5 MMOL/L (20-31); CHLORIDE LEVEL 98.3 MMOL/L (98-107)
[2025-03-26 19:47] LABS: C REACTIVE PROTEIN QUANTITATIV 28.51 MG/DL (<1.0)
[2025-03-26 20:12] LABS: LYMPHOCYTES 1 % (16-44); NEUTROPHILS 99 % (28-66)
[2025-03-26 20:13] LABS: PLATELET ESTIMATE DECREASED (NORMAL)
[2025-03-26 20:14] LABS: DOHLE BODIES 2+
[2025-03-26 20:19] LABS: CK-MB VALUE MASS 2.3 NG/ML (<3.6); CPK CREATINE PHOSPHOKINASE 2800 U/L (46-171); MB/CK RELATIVE INDEX 0.08 (< OR =4)
[2025-03-26 20:20] LABS: CK-MB VALUE MASS 2.1 NG/ML (<3.6); CPK CREATINE PHOSPHOKINASE 2644.0 U/L (46-171); MB/CK RELATIVE INDEX 0.07 (< OR =4)
[2025-03-26] MEDS: IBUPROFEN 600 MG TAB PO ONE (21:39)
[2025-03-26] MEDS: cefTRIAXone SOD 2 GM in DEXTROSE 5% (D5W) ADV/MINI-BAG 50 ML IV ONE (21:40)
[2025-03-26] MEDS ORDERED: THERTAB19 PO (22:16)
[2025-03-26] MEDS ORDERED: HOME MED LIST COMPLETE! XX SCH (22:20)
[2025-03-27] MEDS ORDERED: VANCOMYCIN HCL 1,000 MG, VIAL MATE ADAPTER 1 EACH in NS 250 ML IV SCH (00:25)
[2025-03-27] MEDS ORDERED: GLUCOSE 4 GM CHEW PO PRN (00:40)
[2025-03-27] MEDS ORDERED: GLUCAGON INJ 1 MG VIAL SC PRN (00:40)
[2025-03-27] MEDS ORDERED: DEXTROSE 50% 50 ML SYRINGE IV PRN (00:40)
[2025-03-27] MEDS: LATANOPROST 0.005% OPHTH SOLN 2.5 ML OU SCH (01:09)
[2025-03-27] MEDS: PIPERACILLIN/TAZOBACTAM SOD 4.5 GM in DEXTROSE 5% (D5W) ADV/MINI-BAG 50 ML IV SCH (01:37)
[2025-03-27] MEDS: CLOPIDOGREL 75 MG TAB PO SCH (01:37)
[2025-03-27] MEDS: ATORVASTATIN 20 MG TAB PO SCH (01:37)
[2025-03-27] MEDS: ASCORBIC ACID 500 MG TAB PO SCH (01:37)
[2025-03-27] MEDS: ASPIRIN 325 MG TAB PO ONE (01:37)
[2025-03-27] MEDS: LanTUS (INSULIN GLARGINE INJ) 1 UNITS/0.01 ML SC SCH (01:38)
[2025-03-27] MEDS: ENOXAPARIN 40 MG/0.4 ML SYRINGE (J1650 PER 10MG) SC SCH (01:38)
[2025-03-27] MEDS: LR 1,000 ML IV SCH (01:38)
[2025-03-27] MEDS ORDERED: ACETAMINOPHEN 325 MG TAB PO PRN (02:30)
[2025-03-27] MEDS: VANCOMYCIN HCL 1,500 MG, VIAL MATE ADAPTER 1 EACH in NS 500 ML IV ONE (02:45)
[2025-03-27 07:34] LABS: IRON (FE) 15.0 UG/DL (65-175); PERCENT SATURATION 8.1 % (19.7-50.0)
[2025-03-27 07:37] LABS: VITAMIN B12 LEVEL 1003.0 PG/ML (211-911)
[2025-03-27 07:39] LABS: ALT/SGPT 32.0 U/L (7.0-40); AST/SGOT 105.0 U/L (<34)
[2025-03-27 08:40] LABS: BASO # 0.0 10^3/uL (0.0-0.2); BASO % 0.2 % (0.0-1.0); EOS # 0.0 10^3/uL (0.0-0.5); EOS % 0.0 % (0.0-3.0); LYMPH # 0.4 10^3/uL (1.5-5.0); LYMPH % 4.7 % (24.0-44.0); MONO # 0.5 10^3/uL (0.0-0.8); MONO % 5.7 % (2.0-8.0); NEUTROPHILS # 8.2 10^3/uL (1.5-8.5); NEUTROPHILS % 88.3 % (36.0-66.0); PLATELET COUNT, AUTOMATED 136 10^3/uL (150-450)
[2025-03-27] MEDS: BRIMONIDINE 0.1% OPHTH SOLN 5 ML OD SCH (09:00)
[2025-03-27 09:03] LABS: CALCIUM LEVEL 8.1 MG/DL (8.3-10.6); CARBON DIOXIDE LEVEL 21.0 MMOL/L (20-31); CHLORIDE LEVEL 105.0 MMOL/L (98-107); CREATININE FOR GFR 1.6 MG/DL (0.70-1.30); GLOMERULAR FILTRATION RATE 46.6 (>49); POTASSIUM SERUM 3.0 MMOL/L (3.5-5.1); SODIUM LEVEL 140.0 MMOL/L (136-145)
[2025-03-27 09:19] LABS: C REACTIVE PROTEIN QUANTITATIV 27.05 MG/DL (<1.0)
[2025-03-27] MEDS: guaiFENesin ER TABLET 600 MG TAB PO SCH (09:22)
[2025-03-27] MEDS: METOPROLOL SUCC. 50 MG *XL* TAB PO SCH (09:22)
[2025-03-27] MEDS: INSULIN LISPRO (NovoLOG) PER UNIT SC SCH ×2 (09:23→21:00)
[2025-03-27] MEDS: POTASSIUM CHLORIDE 10MEQ SR TABLET PO ONE ×2 (10:18→14:00)
[2025-03-27] MEDS: VANCOMYCIN HCL 1,000 MG, VIAL MATE ADAPTER 1 EACH in NS 250 ML IV SCH (14:00)
[2025-03-27] MEDS: NS (Normal Saline) 0.9% 1,000 ML IV ONE (14:27)
[2025-03-27 15:00] LABS: CK-MB VALUE MASS 2.0 NG/ML (<3.6)
[2025-03-27 15:02] LABS: ANTI-STREPTOLYSIN O QUANT 82.2 IU/ML (<195)
[2025-03-27 15:09] LABS: CPK CREATINE PHOSPHOKINASE 1028.0 U/L (46-171); MB/CK RELATIVE INDEX 0.19 (< OR =4)
[2025-03-27 15:34] VITALS: BP 118/77
[2025-03-27] MEDS: NS (Normal Saline) 0.9% 1,000 ML IV SCH (15:46)
[2025-03-27] MEDS: MORPHINE 2 MG/ML 1 ML VIAL IV PRN (15:50)
[2025-03-27 16:00] VITALS: BP 98/54; TEMP 96.7; O2SAT 96
[2025-03-27 16:06] LABS: CK-MB VALUE MASS 1.6 NG/ML (<3.6)
[2025-03-27 16:20] LABS: CPK CREATINE PHOSPHOKINASE 904.0 U/L (46-171); MB/CK RELATIVE INDEX 0.17 (< OR =4)
[2025-03-27 19:37] VITALS: BP 96/53; TEMP 97; O2SAT 99
[2025-03-27] MEDS: ASPIRIN 81 MG CHEWABLE TABLET PO SCH (21:07)
[2025-03-27 23:18] VITALS: BP 102/52; TEMP 97.4; O2SAT 97
[2025-03-28 03:13] VITALS: BP 97/55; TEMP 97; O2SAT 96
[2025-03-28] MEDS: cefTRIAXone SOD 2 GM in DEXTROSE 5% (D5W) ADV/MINI-BAG 50 ML IV SCH (06:10)
[2025-03-28 06:33] LABS: PLATELET COUNT, AUTOMATED 134 10^3/uL (150-450)
[2025-03-28 07:24] LABS: ALT/SGPT 37.0 U/L (7.0-40); AST/SGOT 92.0 U/L (<34); CALCIUM LEVEL 7.4 MG/DL (8.3-10.6); CARBON DIOXIDE LEVEL 19.0 MMOL/L (20-31); CHLORIDE LEVEL 107.0 MMOL/L (98-107); CREATININE FOR GFR 1.31 MG/DL (0.70-1.30); GLOMERULAR FILTRATION RATE 59.3 (>49); POTASSIUM SERUM 3.3 MMOL/L (3.5-5.1); SODIUM LEVEL 139.0 MMOL/L (136-145)
[2025-03-28 07:37] VITALS: BP 121/61; TEMP 98.1; O2SAT 97
[2025-03-28 08:01] LABS: MAGNESIUM LEVEL 1.6 MG/DL (1.8-2.4)
[2025-03-28] MEDS: LACTIC ACID 12% LOTION 225 GM BTL EXT SCH (09:16)
[2025-03-28] MEDS: POTASSIUM CHLORIDE 10MEQ SR TABLET PO ONE (09:16)
[2025-03-28] MEDS: MAG SULF 1GM/100ML (MAG RUN) 1 GM in IV 1 EA IV ONE (09:24)
[2025-03-28] MEDS ORDERED: PROHANCE 279.3MG/ML 15ML VIAL As Ordered ONE (09:39)
[2025-03-28] MEDS ORDERED: PROHANCE 279.3MG/ML 5ML VIAL As Ordered ONE (09:39)
[2025-03-28 19:36] VITALS: BP 142/67; TEMP 97.6; O2SAT 98
[2025-03-29] VITALS (7 sets, daily range): BP systolic 118–137; BP diastolic 57–68; TEMP 97.3–98.3; O2SAT 95–98
[2025-03-29 05:52] LABS: PLATELET COUNT, AUTOMATED 158 10^3/uL (150-450)
[2025-03-29 06:21] LABS: ALT/SGPT 36.0 U/L (7.0-40); AST/SGOT 75.0 U/L (<34); CALCIUM LEVEL 7.6 MG/DL (8.3-10.6); CARBON DIOXIDE LEVEL 20.0 MMOL/L (20-31); CHLORIDE LEVEL 109.0 MMOL/L (98-107); CREATININE FOR GFR 1.06 MG/DL (0.70-1.30); GLOMERULAR FILTRATION RATE 76.4 (>49); MAGNESIUM LEVEL 1.6 MG/DL (1.8-2.4); POTASSIUM SERUM 3.5 MMOL/L (3.5-5.1); SODIUM LEVEL 141.0 MMOL/L (136-145)
[2025-03-29] MEDS: MAGNESIUM GLUCONATE 500 MG TAB PO SCH (08:22)
[2025-03-29] MEDS: MAG SULF 1GM/100ML (MAG RUN) 1 GM in IV 1 EA IV SCH (08:22)
[2025-03-30 03:15] VITALS: BP 158/72; TEMP 98.1; O2SAT 97
[2025-03-30 06:01] LABS: PLATELET COUNT, AUTOMATED 207 10^3/uL (150-450)
[2025-03-30 06:34] LABS: ALT/SGPT 32.0 U/L (7.0-40); AST/SGOT 58.0 U/L (<34); CALCIUM LEVEL 7.6 MG/DL (8.3-10.6); CARBON DIOXIDE LEVEL 22.0 MMOL/L (20-31); CHLORIDE LEVEL 107.0 MMOL/L (98-107); CREATININE FOR GFR 0.98 MG/DL (0.70-1.30); GLOMERULAR FILTRATION RATE 84.0 (>49); POTASSIUM SERUM 3.4 MMOL/L (3.5-5.1); SODIUM LEVEL 139.0 MMOL/L (136-145)
[2025-03-30 07:23] VITALS: BP 136/64; TEMP 97.9; O2SAT 96
[2025-03-30] MEDS: POTASSIUM CHLORIDE 10MEQ SR TABLET PO SCH (09:47)
[2025-03-30 12:06] VITALS: BP 123/69; TEMP 97.3; O2SAT 97
[2025-03-30 16:16] VITALS: BP 136/62; TEMP 98.1; O2SAT 98
[2025-03-30 19:34] VITALS: BP 113/55; TEMP 98.2; O2SAT 95
[2025-03-30 23:38] VITALS: BP 123/60; TEMP 98.2; O2SAT 98
[2025-03-31 03:10] VITALS: BP 105/58; TEMP 98.4; O2SAT 96
[2025-03-31 06:10] LABS: PLATELET COUNT, AUTOMATED 251 10^3/uL (150-450)
[2025-03-31 08:00] VITALS: BP 112/58; TEMP 97.7; O2SAT 97
[2025-03-31 08:02] LABS: ALT/SGPT 26.0 U/L (7.0-40); AST/SGOT 46.0 U/L (<34); CALCIUM LEVEL 7.8 MG/DL (8.3-10.6); CARBON DIOXIDE LEVEL 20.0 MMOL/L (20-31); CHLORIDE LEVEL 106.0 MMOL/L (98-107); CREATININE FOR GFR 1.09 MG/DL (0.70-1.30); GLOMERULAR FILTRATION RATE 73.9 (>49); MAGNESIUM LEVEL 1.8 MG/DL (1.8-2.4); POTASSIUM SERUM 3.7 MMOL/L (3.5-5.1); SODIUM LEVEL 139.0 MMOL/L (136-145)
[2025-03-31 12:00] VITALS: TEMP 97.3; O2SAT 98
[2025-03-31] MEDS: ACETAMINOPHEN 500 MG TAB PO SCH (12:30)
[2025-03-31] MEDS: KETOROLAC 30 MG/ML 1 ML VIAL IV SCH (12:30)
[2025-03-31 16:00] VITALS: BP 90/56; TEMP 97.7; O2SAT 99
[2025-03-31 19:57] VITALS: BP 106/59; TEMP 96.6; O2SAT 99
[2025-03-31 23:15] VITALS: BP 101/58; TEMP 97.6; O2SAT 100
[2025-04-01 04:37] VITALS: BP 104/63; TEMP 98.7; O2SAT 99
[2025-04-01 05:45] LABS: PLATELET COUNT, AUTOMATED 265 10^3/uL (150-450)
[2025-04-01 06:15] LABS: ALT/SGPT 31.0 U/L (7.0-40); AST/SGOT 56.0 U/L (<34); C REACTIVE PROTEIN QUANTITATIV 18.67 MG/DL (<1.0); CALCIUM LEVEL 8.1 MG/DL (8.3-10.6); CARBON DIOXIDE LEVEL 19.0 MMOL/L (20-31); CHLORIDE LEVEL 107.0 MMOL/L (98-107); CREATININE FOR GFR 1.53 MG/DL (0.70-1.30); GLOMERULAR FILTRATION RATE 49.2 (>49); POTASSIUM SERUM 4.1 MMOL/L (3.5-5.1); SODIUM LEVEL 139.0 MMOL/L (136-145)
[2025-04-01 07:12] LABS: ERYTHROCYTE SEDIMENTATION RATE 102 mm/hr (0-20)
[2025-04-01 07:35] VITALS: BP 148/71; TEMP 97.5; O2SAT 94
[2025-04-01 12:17] VITALS: BP 114/58; TEMP 97.3; O2SAT 96
[2025-04-01 15:47] VITALS: BP 155/71; TEMP 97; O2SAT 98
[2025-04-01] MEDS ORDERED: KETOROLAC 30 MG/ML 1 ML VIAL IV PRN (17:05)
[2025-04-01] MEDS: ACETAMINOPHEN 500 MG TAB PO SCH (17:20)
[2025-04-01 19:16] VITALS: BP 120/65; TEMP 97; O2SAT 97
[2025-04-02 00:10] VITALS: BP 133/61; TEMP 97.3; O2SAT 97
[2025-04-02 05:07] VITALS: BP 155/72; TEMP 97.4; O2SAT 98
[2025-04-02 05:57] LABS: PLATELET COUNT, AUTOMATED 400 10^3/uL (150-450)
[2025-04-02 06:33] LABS: ALT/SGPT 26.0 U/L (7.0-40); AST/SGOT 44.0 U/L (<34); CALCIUM LEVEL 7.8 MG/DL (8.3-10.6); CARBON DIOXIDE LEVEL 19.0 MMOL/L (20-31); CHLORIDE LEVEL 109.0 MMOL/L (98-107); CREATININE FOR GFR 1.17 MG/DL (0.70-1.30); GLOMERULAR FILTRATION RATE 67.9 (>49); POTASSIUM SERUM 3.7 MMOL/L (3.5-5.1); SODIUM LEVEL 138.0 MMOL/L (136-145)
[2025-04-02 07:32] VITALS: BP 160/77; TEMP 97.3; O2SAT 96
[2025-04-02] MEDS: POTASSIUM CHLORIDE 10MEQ SR TABLET PO SCH (09:02)
[2025-04-02 12:10] VITALS: BP 104/56; TEMP 97.1; O2SAT 100
[2025-04-02 16:38] VITALS: BP 176/79; TEMP 98.2; O2SAT 97
[2025-04-02 18:57] VITALS: BP 138/64; TEMP 97.3; O2SAT 95
[2025-04-03] VITALS (8 sets, daily range): BP systolic 116–177; BP diastolic 52–80; TEMP 97.3–97.6; O2SAT 95–98
[2025-04-03] MEDS: hydrALAZINE 20 MG/ML 1 ML VIAL IV ONE (04:52)
[2025-04-03 05:51] LABS: PLATELET COUNT, AUTOMATED 436 10^3/uL (150-450)
[2025-04-03 06:04] LABS: ERYTHROCYTE SEDIMENTATION RATE 78 mm/hr (0-20)
[2025-04-03 06:24] LABS: CALCIUM LEVEL 8.0 MG/DL (8.3-10.6); CARBON DIOXIDE LEVEL 20.0 MMOL/L (20-31); CHLORIDE LEVEL 108.0 MMOL/L (98-107); CREATININE FOR GFR 0.99 MG/DL (0.70-1.30); GLOMERULAR FILTRATION RATE 83.0 (>49); POTASSIUM SERUM 4.0 MMOL/L (3.5-5.1); SODIUM LEVEL 140.0 MMOL/L (136-145)
[2025-04-03 06:25] LABS: C REACTIVE PROTEIN QUANTITATIV 16.69 MG/DL (<1.0)
[2025-04-03] MEDS: NAPROXEN 250 MG TAB PO SCH (08:07)
[2025-04-03] MEDS: predniSONE 20 MG TAB PO SCH (08:07)
[2025-04-04 03:25] VITALS: BP 128/62; TEMP 97.4; O2SAT 100
[2025-04-04 08:12] VITALS: BP 118/58
[2025-04-04 08:15] LABS: BASO # 0.0 10^3/uL (0.0-0.2); BASO % 0.1 % (0.0-1.0); EOS # 0.0 10^3/uL (0.0-0.5); EOS % 0.1 % (0.0-3.0); LYMPH # 1.4 10^3/uL (1.5-5.0); LYMPH % 9.6 % (24.0-44.0); MONO # 0.8 10^3/uL (0.0-0.8); MONO % 5.4 % (2.0-8.0); NEUTROPHILS # 12.4 10^3/uL (1.5-8.5); NEUTROPHILS % 84.4 % (36.0-66.0); PLATELET COUNT, AUTOMATED 408 10^3/uL (150-450)
[2025-04-04 08:24] VITALS: BP 118/58; TEMP 97.8; O2SAT 98
[2025-04-04 08:44] LABS: CALCIUM LEVEL 7.7 MG/DL (8.3-10.6); CARBON DIOXIDE LEVEL 23.0 MMOL/L (20-31); CHLORIDE LEVEL 107.0 MMOL/L (98-107); CREATININE FOR GFR 1.17 MG/DL (0.70-1.30); GLOMERULAR FILTRATION RATE 67.9 (>49); POTASSIUM SERUM 4.2 MMOL/L (3.5-5.1); SODIUM LEVEL 140.0 MMOL/L (136-145)
[2025-04-04 09:05] LABS: C REACTIVE PROTEIN QUANTITATIV 17.71 MG/DL (<1.0)
[2025-04-04] MEDS ORDERED: ATOR1TAB21 PO (11:36)
[2025-04-04] MEDS ORDERED: ACET-683 PO (11:36)
[2025-04-04] MEDS ORDERED: TRAM50TA2 PO (11:39)
[2025-04-04] MEDS ORDERED: ELIQ5TAB PO (12:00)
== END 2025-04-04 16:25 | disposition home health service (06) | DRG 872 ==
LOC: EDUNIT# 17:38 → M ED 17:38 → EDBD 17:38 → EEVIPCON 03-27 02:30 → M ED INP 03-27 02:30 → M PCU 03-27 13:29
PROVIDERS: ADMIT Student in an Organized Health Care Education/Training Program; ATTEND Internal Medicine Nephrology
DX: A40.9 Streptococcal sepsis, unspecified (principal); N17.9 Acute kidney failure, unspecified; L03.113 Cellulitis of right upper limb; M62.82 Rhabdomyolysis; I24.89 Other forms of acute ischemic heart disease; I48.92 Unspecified atrial flutter; F33.9 Major depressive disorder, recurrent, unspecified; R65.20 Severe sepsis without septic shock; E11.628 Type 2 diabetes mellitus with other skin complications; D69.6 Thrombocytopenia, unspecified; D50.9 Iron deficiency anemia, unspecified; E11.621 Type 2 diabetes mellitus with foot ulcer; E11.22 Type 2 diabetes mellitus with diabetic chronic kidney disease; L97.509 Non-pressure chronic ulcer of other part of unspecified foot with unspecified severity; I12.9 Hypertensive chronic kidney disease with stage 1 through stage 4 chronic kidney disease, or unspecified chronic kidney disease; E83.42 Hypomagnesemia; I48.0 Paroxysmal atrial fibrillation; N18.30 Chronic kidney disease, stage 3 unspecified; E87.6 Hypokalemia; H40.9 Unspecified glaucoma; K57.90 Diverticulosis of intestine, part unspecified, without perforation or abscess without bleeding; R91.1 Solitary pulmonary nodule; I25.10 Atherosclerotic heart disease of native coronary artery without angina pectoris; E11.40 Type 2 diabetes mellitus with diabetic neuropathy, unspecified; M11.9 Crystal arthropathy, unspecified; Z89.421 Acquired absence of other right toe(s); Z79.4 Long term (current) use of insulin; Z79.899 Other long term (current) drug therapy

== ENCOUNTER 2025-04-04 16:37 | Outpatient (CLI) | payer MEDICARE, MEDICAID ==
[~2025-04-04 16:37] MED LIST changes: +ACET-683 PO; +ELIQ5TAB PO; +THERTAB19 PO; +TRAM50TA2 PO
[2025-04-04] MEDS: DALBAVANCIN 1,500 MG in D5W 250 ML IV ONE (16:57)
== END 2025-04-04 18:05 | disposition home or self-care (01) ==
LOC: M OPCLIPCU 16:37 → M PCU 16:37 → M OPCLIPCU 18:05
PROVIDERS: ATTEND Internal Medicine Nephrology
DX: A40.0 Sepsis due to streptococcus, group A (principal); A41.01 Sepsis due to Methicillin susceptible Staphylococcus aureus; R65.20 Severe sepsis without septic shock; L03.113 Cellulitis of right upper limb; B34.8 Other viral infections of unspecified site; Z91.048 Other nonmedicinal substance allergy status
CPT/HCPCS: 96365; J0875

== ENCOUNTER 2025-04-10 11:50 | Emergency (ER) | payer MEDICARE, MEDICAID ==
[~2025-04-10] VITALS: Ht 180.3 cm; Wt 81.8 kg
[~2025-04-10 11:50] MED LIST changes: -LANTINJ4 SUBQ
[2025-04-10 12:54] LABS: BASO # 0.1 10^3/uL (0.0-0.2); BASO % 0.8 % (0.0-1.0); EOS # 0.1 10^3/uL (0.0-0.5); EOS % 0.8 % (0.0-3.0); LYMPH # 1.2 10^3/uL (1.5-5.0); LYMPH % 12.8 % (24.0-44.0); MONO # 0.6 10^3/uL (0.0-0.8); MONO % 5.9 % (2.0-8.0); NEUTROPHILS # 7.4 10^3/uL (1.5-8.5); NEUTROPHILS % 79.5 % (36.0-66.0); PLATELET COUNT, AUTOMATED 447 10^3/uL (150-450)
[2025-04-10 13:05] LABS: ERYTHROCYTE SEDIMENTATION RATE 71 mm/hr (0-20)
[2025-04-10 13:21] LABS: ALT/SGPT 14 U/L (7.0-40); AST/SGOT 19 U/L (<34); C REACTIVE PROTEIN QUANTITATIV 8.72 MG/DL (<1.0); CALCIUM LEVEL 8.0 MG/DL (8.3-10.6); CARBON DIOXIDE LEVEL 26 MMOL/L (20-31); CHLORIDE LEVEL 102 MMOL/L (98-107); CREATININE FOR GFR 0.86 MG/DL (0.70-1.30); GLOMERULAR FILTRATION RATE > 90.0 (>49); MAGNESIUM LEVEL 1.4 MG/DL (1.8-2.4); POTASSIUM SERUM 3.8 MMOL/L (3.5-5.1); SODIUM LEVEL 140 MMOL/L (136-145)
[2025-04-10 14:32] LABS: IRON (FE) 18 UG/DL (65-175); PERCENT SATURATION 9.9 % (19.7-50.0)
[2025-04-10] MEDS: MAG SULF 1GM/100ML (MAG RUN) 1 GM in IV 1 EA IV ONE (14:56)
[2025-04-10 15:41] LABS: VITAMIN B12 LEVEL 871 PG/ML (211-911)
[2025-04-10 16:15] VITALS: BP 168/83; TEMP 98.1; O2SAT 96
[2025-04-11] MEDS ORDERED: TURM500C10 PO (21:58)
[2025-04-11] MEDS ORDERED: TRAM50TA2 PO (21:58)
[2025-04-11] MEDS ORDERED: ATOR1TAB21 PO (21:58)
[2025-04-11] MEDS ORDERED: ODOR100T3 PO (21:58)
[2025-04-11] MEDS ORDERED: OMEG10002 PO (21:58)
[2025-04-11] MEDS ORDERED: ELIQ5TAB PO (21:58)
[2025-04-11] MEDS ORDERED: ONETAB20 PO (21:58)
== END 2025-04-10 16:34 | disposition home or self-care (01) ==
LOC: EDBD 11:50 → M ED 11:50
DX: E83.42 Hypomagnesemia (principal); R53.81 Other malaise; D64.9 Anemia, unspecified; I25.2 Old myocardial infarction; I25.119 Atherosclerotic heart disease of native coronary artery with unspecified angina pectoris; E11.9 Type 2 diabetes mellitus without complications; I45.81 Long QT syndrome; I12.9 Hypertensive chronic kidney disease with stage 1 through stage 4 chronic kidney disease, or unspecified chronic kidney disease; Z87.891 Personal history of nicotine dependence; Z79.1 Long term (current) use of non-steroidal anti-inflammatories (NSAID); Z79.01 Long term (current) use of anticoagulants; Z79.4 Long term (current) use of insulin; Z79.84 Long term (current) use of oral hypoglycemic drugs; Z79.899 Other long term (current) drug therapy; Z79.810 Long term (current) use of selective estrogen receptor modulators (SERMs); Z88.8 Allergy status to other drugs, medicaments and biological substances
CPT/HCPCS: 71045; 73110; 80048; 80076; 82607; 82728; 83550; 83605; 83690; 83735; 84145; 84550; 85025; 85046; 85652; 86140; 87040; 93005; 93041; 96365; 99285; J3475

== ENCOUNTER 2025-04-11 14:08 | Observation (INO) | payer MEDICARE, MEDICAID ==
[~2025-04-11] VITALS: Ht 180.3 cm; Wt 80.0 kg
[2025-04-11 17:26] LABS: PLATELET COUNT, AUTOMATED 477 10^3/uL (150-450)
[2025-04-11 17:44] LABS: CALCIUM LEVEL 8.7 MG/DL (8.3-10.6); CARBON DIOXIDE LEVEL 28.0 MMOL/L (20-31); CHLORIDE LEVEL 101.0 MMOL/L (98-107); CREATININE FOR GFR 0.98 MG/DL (0.70-1.30); GLOMERULAR FILTRATION RATE 84.0 (>49); MAGNESIUM LEVEL 1.4 MG/DL (1.8-2.4); POTASSIUM SERUM 3.8 MMOL/L (3.5-5.1); SODIUM LEVEL 140.0 MMOL/L (136-145)
[2025-04-11] MEDS: MAG SULF 1GM/100ML (MAG RUN) 1 GM in IV 1 EA IV ONE (19:20)
[2025-04-11] MEDS: INSULIN LISPRO (NovoLOG) PER UNIT SC SCH (21:00)
[2025-04-11] MEDS ORDERED: GLUCAGON INJ 1 MG VIAL SC PRN (21:35)
[2025-04-11] MEDS ORDERED: ACETAMINOPHEN 325 MG TAB PO PRN (21:35)
[2025-04-11] MEDS ORDERED: DEXTROSE 50% 50 ML SYRINGE IV PRN (21:35)
[2025-04-11] MEDS ORDERED: GLUCOSE 4 GM CHEW PO PRN (21:35)
[2025-04-11] MEDS ORDERED: TURM500C10 PO (21:58)
[2025-04-11] MEDS ORDERED: ATOR1TAB21 PO (21:58)
[2025-04-11] MEDS ORDERED: OMEG10002 PO (21:58)
[2025-04-11] MEDS ORDERED: ONETAB20 PO (21:58)
[2025-04-11] MEDS ORDERED: ODOR100T3 PO (21:58)
[2025-04-11] MEDS ORDERED: ELIQ5TAB PO (21:58)
[2025-04-11] MEDS ORDERED: TRAM50TA2 PO (21:58)
[2025-04-11] MEDS ORDERED: HOME MED LIST COMPLETE! XX SCH (22:05)
[2025-04-11 22:44] LABS: MAGNESIUM LEVEL 1.7 MG/DL (1.8-2.4)
[2025-04-11 22:46] LABS: C REACTIVE PROTEIN QUANTITATIV 9.32 MG/DL (<1.0)
[2025-04-11 22:59] LABS: CPK CREATINE PHOSPHOKINASE 101.0 U/L (46-171)
[2025-04-11] MEDS: APIXABAN 5 MG TAB PO SCH (23:53)
[2025-04-11] MEDS: BRIMONIDINE 0.1% OPHTH SOLN 5 ML OD SCH (23:54)
[2025-04-11] MEDS: LATANOPROST 0.005% OPHTH SOLN 2.5 ML OU SCH (23:54)
[2025-04-12 00:07] VITALS: BP 184/72; TEMP 98.8; O2SAT 97
[2025-04-12] MEDS: MAG SULF 1GM/100ML (MAG RUN) 1 GM in IV 1 EA IV ONE ×2 (00:50→09:50)
[2025-04-12 01:05] VITALS: BP 152/62
[2025-04-12 04:04] VITALS: BP 146/70; TEMP 98.2; O2SAT 95
[2025-04-12 06:45] LABS: BASO # 0.1 10^3/uL (0.0-0.2); BASO % 0.8 % (0.0-1.0); EOS # 0.1 10^3/uL (0.0-0.5); EOS % 1.5 % (0.0-3.0); LYMPH # 1.1 10^3/uL (1.5-5.0); LYMPH % 15.4 % (24.0-44.0); MONO # 0.3 10^3/uL (0.0-0.8); MONO % 4.6 % (2.0-8.0); NEUTROPHILS # 5.6 10^3/uL (1.5-8.5); NEUTROPHILS % 77.3 % (36.0-66.0); PLATELET COUNT, AUTOMATED 425 10^3/uL (150-450)
[2025-04-12 07:03] LABS: ESTIMATED AVERAGE GLUCOSE 154.0 MG/DL (60-110)
[2025-04-12 07:12] LABS: ALT/SGPT 17 U/L (7.0-40); AST/SGOT 29 U/L (<34); CALCIUM LEVEL 8.2 MG/DL (8.3-10.6); CARBON DIOXIDE LEVEL 30 MMOL/L (20-31); CHLORIDE LEVEL 98 MMOL/L (98-107); CREATININE FOR GFR 0.86 MG/DL (0.70-1.30); GLOMERULAR FILTRATION RATE > 90.0 (>49); MAGNESIUM LEVEL 1.7 MG/DL (1.8-2.4); POTASSIUM SERUM 3.1 MMOL/L (3.5-5.1); SODIUM LEVEL 137 MMOL/L (136-145)
[2025-04-12 07:14] LABS: FREE T4 1.49 NG/DL (0.89-1.76)
[2025-04-12 08:01] LABS: VITAMIN B12 LEVEL 1013 PG/ML (211-911)
[2025-04-12] MEDS: KCL 10MEQ/100ML SWI (KRUN) 10 MEQ in IV 1 EA IV ONE (09:00)
[2025-04-12] MEDS: INSULIN LISPRO (NovoLOG) PER UNIT SC SCH (09:50)
[2025-04-12 09:52] VITALS: BP 141/87
[2025-04-12] MEDS: ASPIRIN 81 MG ENTERIC TABLET PO SCH (09:52)
[2025-04-12] MEDS: VITAMIN D 1,000 INTERNATIONAL UNITS TABLET PO SCH (09:52)
[2025-04-12] MEDS: METOPROLOL SUCC. 50 MG *XL* TAB PO SCH (09:52)
[2025-04-12] MEDS: ASCORBIC ACID 500 MG TAB PO SCH (09:52)
[2025-04-12] MEDS: POTASSIUM CHLORIDE 10MEQ SR TABLET PO ONE (09:52)
[2025-04-12] MEDS: ATORVASTATIN 20 MG TAB PO SCH (09:53)
[2025-04-12] MEDS: PANTOPRAZOLE 40MG VIAL IV SCH (09:53)
[2025-04-12] MEDS ORDERED: TRAM50TA2 PO (11:06)
[2025-04-12] MEDS: OMEGA-3 1000 MG CAPSULE PO SCH (11:59)
[2025-04-12] MEDS: MULTIVITAMINS/MINERALS THERAP 1 TAB PO SCH (11:59)
[2025-04-12] MEDS ORDERED: MAGN400T2 PO (16:02)
[2025-04-12] MEDS ORDERED: INSULIN GLARGINE-YFGN 1 UNITS/0.01 ML SC SCH (21:00)
== END 2025-04-12 12:40 | disposition home or self-care (01) ==
LOC: M ED 14:08 → EDBD 14:08 → M ED INP 14:09 → M MSPAV 04-12 00:07
PROVIDERS: ADMIT Student in an Organized Health Care Education/Training Program; ATTEND Internal Medicine
DX: R53.1 Weakness (principal); M51.369 Other intervertebral disc degeneration, lumbar region without mention of lumbar back pain or lower extremity pain; S32.030A Wedge compression fracture of third lumbar vertebra, initial encounter for closed fracture; M19.90 Unspecified osteoarthritis, unspecified site; F43.10 Post-traumatic stress disorder, unspecified; I48.91 Unspecified atrial fibrillation; I48.92 Unspecified atrial flutter; E11.40 Type 2 diabetes mellitus with diabetic neuropathy, unspecified; Z79.4 Long term (current) use of insulin; I10 Essential (primary) hypertension; I25.10 Atherosclerotic heart disease of native coronary artery without angina pectoris; N18.30 Chronic kidney disease, stage 3 unspecified; R44.3 Hallucinations, unspecified; Z79.01 Long term (current) use of anticoagulants; Z79.82 Long term (current) use of aspirin; Z79.899 Other long term (current) drug therapy
CPT/HCPCS: 36415; 71046; 72131; 80048; 80053; 82550; 82607; 82746; 83036; 83735; 84145; 84439; 84443; 85025; 85027; 86140; 96361; 96374; 97161; 99284; G0378; J1815; J2470; J3475

== ENCOUNTER 2025-04-12 13:06 | Outpatient (CLI) | payer MEDICARE, MEDICAID ==
[~2025-04-12 13:06] MED LIST changes: +OMEG10002 PO; +ONETAB20 PO; +TURM500C10 PO
[2025-04-12 15:23] VITALS: BP 119/64; TEMP 97.7; O2SAT 95
[2025-04-12] MEDS: DALBAVANCIN 1,500 MG in D5W 250 ML IV ONE (15:28)
[2025-04-12] MEDS ORDERED: MAGN400T2 PO (16:02)
== END 2025-04-12 17:39 | disposition home or self-care (01) ==
LOC: M OPCLI4PV 13:06 → M INFU 13:06 → M MSPAV 13:08 → M OPCLI4PV 17:39
PROVIDERS: ATTEND Internal Medicine Nephrology
DX: A41.9 Sepsis, unspecified organism (principal)
CPT/HCPCS: 96365; 96366; J0875

== ENCOUNTER 2025-04-17 11:12 | Emergency (ER) | payer MEDICARE, MEDICAID ==
[~2025-04-17] VITALS: Ht 180.3 cm; Wt 71.6 kg
[~2025-04-17 11:12] MED LIST changes: +MAGN400T2 PO
[2025-04-17 11:40] LABS: BASO # 0.1 10^3/uL (0.0-0.2); BASO % 0.8 % (0.0-1.0); EOS # 0.2 10^3/uL (0.0-0.5); EOS % 1.7 % (0.0-3.0); LYMPH # 1.5 10^3/uL (1.5-5.0); LYMPH % 15.0 % (24.0-44.0); MONO # 0.8 10^3/uL (0.0-0.8); MONO % 7.8 % (2.0-8.0); NEUTROPHILS # 7.4 10^3/uL (1.5-8.5); NEUTROPHILS % 74.3 % (36.0-66.0); PLATELET COUNT, AUTOMATED 452 10^3/uL (150-450)
[2025-04-17 12:08] LABS: ALT/SGPT 16.0 U/L (7.0-40); AST/SGOT 33.0 U/L (<34); CALCIUM LEVEL 8.5 MG/DL (8.3-10.6); CARBON DIOXIDE LEVEL 29.0 MMOL/L (20-31); CHLORIDE LEVEL 97.0 MMOL/L (98-107); CREATININE FOR GFR 0.94 MG/DL (0.70-1.30); GLOMERULAR FILTRATION RATE 88.3 (>49); POTASSIUM SERUM 3.5 MMOL/L (3.5-5.1); SODIUM LEVEL 139.0 MMOL/L (136-145)
[2025-04-17 13:06] LABS: INR 1.19
[2025-04-17 13:21] LABS: CK-MB VALUE MASS 4.3 NG/ML (<3.6)
[2025-04-17 13:26] LABS: FREE T4 1.48 NG/DL (0.89-1.76)
[2025-04-17 13:30] LABS: CPK CREATINE PHOSPHOKINASE 112.0 U/L (46-171); MB/CK RELATIVE INDEX 3.83 (< OR =4)
[2025-04-17] MEDS ORDERED: MAGN1TAB26 PO (14:00)
[2025-04-17] MEDS ORDERED: med rec comment (14:02)
[2025-04-17] MEDS ORDERED: HOME MED LIST COMPLETE! XX SCH (14:05)
[2025-04-17 14:35] VITALS: BP 138/73; TEMP 99.1; O2SAT 94
[2025-04-17 14:50] VITALS: BP 154/82; TEMP 99.9; O2SAT 94
[2025-04-17 14:52] LABS: CK-MB VALUE MASS 4.4 NG/ML (<3.6)
[2025-04-17 14:53] LABS: CPK CREATINE PHOSPHOKINASE 111.0 U/L (46-171); MB/CK RELATIVE INDEX 3.96 (< OR =4)
[2025-04-17 15:34] VITALS: BP 151/82; TEMP 99.6; O2SAT 94
[2025-04-17 16:31] VITALS: O2SAT 97
[2025-04-17 16:35] VITALS: BP 146/75; TEMP 98.6
== END 2025-04-17 16:40 | disposition short-term general hospital (02) ==
LOC: M ED 11:12 → EDBD 11:12 → M ED 16:40
DX: I21.4 Non-ST elevation (NSTEMI) myocardial infarction (principal); D62 Acute posthemorrhagic anemia; I25.2 Old myocardial infarction; E11.9 Type 2 diabetes mellitus without complications; I10 Essential (primary) hypertension; N18.9 Chronic kidney disease, unspecified; Z79.01 Long term (current) use of anticoagulants; Z91.09 Other allergy status, other than to drugs and biological substances; Z79.02 Long term (current) use of antithrombotics/antiplatelets; Z79.82 Long term (current) use of aspirin; Z79.4 Long term (current) use of insulin; Z79.899 Other long term (current) drug therapy
CPT/HCPCS: 36415; 36430; 70450; 71045; 72125; 73110; 73130; 73564; 80048; 80076; 82550; 82553; 84439; 84443; 84484; 85025; 85610; 85730; 86850; 86900; 86901; 86920; 87040; 93005; 93041; 94760; 99285; P9016

== ENCOUNTER 2025-08-18 14:57 | Observation (INO) | payer MEDICARE, MEDICAID ==
[~2025-08-18] VITALS: Ht 172.7 cm; Wt 72.9 kg
[~2025-08-18 14:57] MED LIST changes: +MAGN1TAB26 PO; +MULT9LIQ PO; -MULTLIQ PO; +med rec comment
[2025-08-18 15:47] LABS: BASO # 0.1 10^3/uL (0.0-0.2); BASO % 1.0 % (0.0-1.0); EOS # 0.5 10^3/uL (0.0-0.5); EOS % 5.0 % (0.0-3.0); LYMPH # 1.4 10^3/uL (1.5-5.0); LYMPH % 15.7 % (24.0-44.0); MONO # 0.6 10^3/uL (0.0-0.8); MONO % 6.5 % (2.0-8.0); NEUTROPHILS # 6.5 10^3/uL (1.5-8.5); NEUTROPHILS % 71.2 % (36.0-66.0); PLATELET COUNT, AUTOMATED 265 10^3/uL (150-450)
[2025-08-18 16:09] LABS: ALT/SGPT 28.0 U/L (7.0-40); AST/SGOT 22.0 U/L (<34); CK-MB VALUE MASS 1.7 NG/ML (<3.6); CPK CREATINE PHOSPHOKINASE 98.0 U/L (46-171); MB/CK RELATIVE INDEX 1.73 (< OR =4)
[2025-08-18 17:00] LABS: CALCIUM LEVEL 9.7 MG/DL (8.3-10.6); CARBON DIOXIDE LEVEL 25.0 MMOL/L (20-31); CHLORIDE LEVEL 106.0 MMOL/L (98-107); CREATININE FOR GFR 1.36 MG/DL (0.70-1.30); GLOMERULAR FILTRATION RATE 56.3 (>49); MAGNESIUM LEVEL 1.9 MG/DL (1.8-2.4); POTASSIUM SERUM 3.9 MMOL/L (3.5-5.1); SODIUM LEVEL 140.0 MMOL/L (136-145)
[2025-08-18] MEDS ORDERED: ISOVUE-370 76% 100 ML VIAL As Ordered ONE (17:10)
[2025-08-18 17:22] LABS: CK-MB VALUE MASS 1.7 NG/ML (<3.6)
[2025-08-18 17:23] LABS: CPK CREATINE PHOSPHOKINASE 90.0 U/L (46-171); MB/CK RELATIVE INDEX 1.88 (< OR =4)
[2025-08-18] MEDS: NS 500 ML IV ONE (17:45)
[2025-08-18 19:34] LABS: CK-MB VALUE MASS 1.7 NG/ML (<3.6)
[2025-08-18 19:36] LABS: CPK CREATINE PHOSPHOKINASE 97.0 U/L (46-171); MB/CK RELATIVE INDEX 1.75 (< OR =4)
[2025-08-19] MEDS ORDERED: MAALOX 30 ML SUSP *UDC PO PRN (01:10)
[2025-08-19] MEDS ORDERED: GLUCAGON INJ 1 MG VIAL SC PRN (01:10)
[2025-08-19] MEDS ORDERED: DEXTROSE 50% 50 ML SYRINGE IV PRN (01:10)
[2025-08-19] MEDS ORDERED: GLUCOSE 4 GM CHEW PO PRN (01:10)
[2025-08-19] MEDS ORDERED: MOM 30 ML SUSPENSION UDC PO PRN (01:10)
[2025-08-19] MEDS ORDERED: ACETAMINOPHEN 325 MG TAB PO PRN (01:10)
[2025-08-19 05:54] VITALS: BP 149/72; TEMP 97.6; O2SAT 99
[2025-08-19] MEDS: INSULIN LISPRO (NovoLOG) PER UNIT SC SCH (07:30)
[2025-08-19 08:57] VITALS: BP 144/68
[2025-08-19] MEDS: METOPROLOL SUCC. 50 MG *XL* TAB PO SCH (08:57)
[2025-08-19] MEDS: DOCUSATE SODIUM 100 MG CAPSULE PO SCH (08:57)
[2025-08-19 09:02] LABS: PLATELET COUNT, AUTOMATED 242 10^3/uL (150-450)
[2025-08-19 09:26] LABS: CALCIUM LEVEL 9.6 MG/DL (8.3-10.6); CARBON DIOXIDE LEVEL 27.0 MMOL/L (20-31); CHLORIDE LEVEL 106.0 MMOL/L (98-107); CREATININE FOR GFR 1.08 MG/DL (0.70-1.30); GLOMERULAR FILTRATION RATE 74.3 (>49); POTASSIUM SERUM 3.6 MMOL/L (3.5-5.1); SODIUM LEVEL 141.0 MMOL/L (136-145)
[2025-08-19] MEDS ORDERED: FIBE625T PO (11:57)
[2025-08-19 12:50] VITALS: BP 146/68; TEMP 97.7; O2SAT 95
[2025-08-19 12:51] LABS: ESTIMATED AVERAGE GLUCOSE 128.0 MG/DL (60-110)
[2025-08-21] MEDS ORDERED: DIFI200T PO (08:52)
== END 2025-08-19 14:19 | disposition hospice, home (50) ==
LOC: M ED 14:57 → EDBD 14:57 → M ED INP 14:58 → INTOOBSV 14:58 → M MSPAV 08-19 04:50
PROVIDERS: ADMIT Student in an Organized Health Care Education/Training Program; ATTEND Internal Medicine Nephrology
DX: R19.7 Diarrhea, unspecified (principal); T47.2X5A Adverse effect of stimulant laxatives, initial encounter; N18.30 Chronic kidney disease, stage 3 unspecified; J90 Pleural effusion, not elsewhere classified; I48.91 Unspecified atrial fibrillation; I48.92 Unspecified atrial flutter; E11.22 Type 2 diabetes mellitus with diabetic chronic kidney disease; E11.42 Type 2 diabetes mellitus with diabetic polyneuropathy; Z89.411 Acquired absence of right great toe; I12.9 Hypertensive chronic kidney disease with stage 1 through stage 4 chronic kidney disease, or unspecified chronic kidney disease; I25.10 Atherosclerotic heart disease of native coronary artery without angina pectoris; M19.90 Unspecified osteoarthritis, unspecified site; H40.9 Unspecified glaucoma; F43.10 Post-traumatic stress disorder, unspecified; R91.1 Solitary pulmonary nodule; N40.0 Benign prostatic hyperplasia without lower urinary tract symptoms; K44.9 Diaphragmatic hernia without obstruction or gangrene; Z98.49 Cataract extraction status, unspecified eye; Z87.891 Personal history of nicotine dependence; Z79.01 Long term (current) use of anticoagulants; Z79.82 Long term (current) use of aspirin; Z79.4 Long term (current) use of insulin; Z79.84 Long term (current) use of oral hypoglycemic drugs; Z79.899 Other long term (current) drug therapy; E86.0 Dehydration; R53.1 Weakness
CPT/HCPCS: 36415; 71045; 71275; 80047; 80048; 80076; 82550; 82553; 83036; 83735; 84443; 84484; 85025; 85027; 87486; 87581; 87633; 87798; 93005; 96360; 96361; 97116; 97161; 99285; G0378; Q9967